=== PATIENT | female | born 1950 | race African-American/Black ===

== ENCOUNTER 2016-04-04 13:02 | Outpatient (CLI) ==
[2012-09-15 05:22] VITALS: TEMP 97.7
[2015-08-25 16:40] VITALS: BMI 38.8
[2016-04-04 14:51] LABS: ALBUMIN 3.8 g/dL (3.4-5.0); ANION GAP 18.1; BUN/CREATININE RATIO 23.52; CALCIUM 10.1 mg/dL (8.2-10.2); CREATININE 1.02 mg/dL (0.60-1.30); PHOSPHORUS 3.7 mg/dL (2.8-4.1); POTASSIUM 4.1 mmol/L (3.5-5.10)
== END 2016-04-04 13:03 | disposition home or self-care (01) ==
LOC: LAB 13:02
PROVIDERS: ATTEND General Practice
DX: I10 Essential (primary) hypertension (principal); J44.9 Chronic obstructive pulmonary disease, unspecified; I25.2 Old myocardial infarction; I50.9 Heart failure, unspecified; E11.9 Type 2 diabetes mellitus without complications; K21.9 Gastro-esophageal reflux disease without esophagitis; N28.9 Disorder of kidney and ureter, unspecified
CPT/HCPCS: 36415; 80069

== ENCOUNTER 2016-05-10 10:48 | Outpatient (CLI) ==
[2012-09-15 05:22] VITALS: TEMP 97.7
[2015-08-25 16:40] VITALS: BMI 38.8
--- NOTE | 2016-05-10 12:53 | DI ---
EXAM: CHEST FRONTAL AND LATERAL VIEWS HISTORY: Heart failure. COMPARISON: 08/28/2015 FINDINGS: Mild cardiomegaly is stable. No vascular congestion or central interstitial edema. Ther e is no consolidation or pleural fluid. IMPRESSION: Stable cardiomegaly. No current active congestive heart failure is suggested.
[2016-05-10 13:09] LABS: BASOPHILS # (AUTO) 0.1 K/uL (0-0.2); BASOPHILS % (AUTO) 0.9 % (0.0-3.0); EOSINOPHILS # (AUTO) 0.1 K/ul (0.0-0.7); EOSINOPHILS % (AUTO) 1.3 % (0.0-7.0); HEMATOCRIT 48.1 % (37.0-47.0); HEMOGLOBIN 16.2 g/dl (12.0-16.0); IMMATURE GRANULOCYTE % (AUTO) 0.6 % (0.0-5.0); MEAN CORPUSCULAR HEMOGLOBIN 29.5 pg (27.0-31.0); MEAN CORPUSCULAR HGB CONC 33.7 (31.8-35.4); MEAN CORPUSCULAR VOLUME 87.5 fl (81.0-99.0); MONOCYTES # (AUTO) 0.5 K/uL (0.4-2.0); MONOCYTES % (AUTO) 10.1 (0-10); NEUTROPHILS # (AUTO) 2.7 K/ul (2.0-6.9); NEUTROPHILS % (AUTO) 50.1; PLATELET COUNT 254 10^3/uL (140-440); WHITE BLOOD COUNT 5.35 K/ul (4.6-10.2)
[2016-05-10 13:20] LABS: ALBUMIN 3.8 g/dL (3.4-5.0); ANION GAP 15.9; BUN/CREATININE RATIO 22.22; CALCIUM 9.9 mg/dL (8.2-10.2); CREATININE 1.08 mg/dL (0.60-1.30); PHOSPHORUS 3.1 mg/dL (2.8-4.1); POTASSIUM 3.9 mmol/L (3.5-5.10)
== END 2016-05-10 10:49 | disposition home or self-care (01) ==
LOC: RAD 10:48
PROVIDERS: ATTEND General Practice
DX: I50.9 Heart failure, unspecified (principal); J44.9 Chronic obstructive pulmonary disease, unspecified; R09.89 Other specified symptoms and signs involving the circulatory and respiratory systems; I10 Essential (primary) hypertension; Z72.0 Tobacco use
CPT/HCPCS: 36415; 80069; 83880; 85025

== ENCOUNTER 2016-07-26 06:33 | Outpatient (CLI) ==
[2012-09-15 05:22] VITALS: TEMP 97.7
[2015-08-25 16:40] VITALS: BMI 38.8
--- NOTE | 2016-07-31 13:29 | ECHO2D ---
Date of Exam: 07/26/16 Ordering Physician: [facility] Reason for Echo: CHF, HTN, COPD M-Mode Normal Adult Results LV Dimensions Normal Adult Results AoV Opening excursions >1.6 >1.6 LVEDD-base- 3.5-5.8 6.4 Ao root dimensions 2.0-3.7 3.4 LVESD-base- 3.1-4.6 L. Atrium dimensions 1.9-3.8 5.5 Post. Wall thickness 0.8-1.1 1.2 IV septum (thickness) 0.7-1.2 1.2 Post. Wall excursion 0.72-1.3 0.4 Septal motion 0.2 Systolic motion R. Ventricular cavity 1.5-2.0 NORMAL LVEF 60% 20% Paradoxical septal wall motion NORMAL 2-D : ENLARGED LEFT ATRIAL AND LEFT VENTRICLE CAVITIES--GLOBAL HYPOKINESIA, VALVES--NORMAL, NO EFFUSION, NO THROMBUS M-MODE: MV: NORMAL AV: NORMAL TV: NORMAL PV: CHAMBER SIZE: ENLARGED LEFT ATRIAL AND LEFT VENTRICLE CAVITIES WALL MOTION: HYPOKINETIC LEFT VENTRICLE PERICARDIUM: NORMAL INTERPRETATION: 1. LEFT VENTRICULAR HYPERTROPHY 2. ENLARGED LEFT ATRIAL AND LEFT VENTRICLE CAVITIES 3. GLOBAL SEVERE HYPOKINESIA --EJECTION FRACTION 20% MTDD
== END 2016-07-26 06:34 | disposition home or self-care (01) ==
LOC: CAR 06:33
PROVIDERS: ATTEND General Practice
DX: I50.9 Heart failure, unspecified (principal); R63.5 Abnormal weight gain; I10 Essential (primary) hypertension; J44.9 Chronic obstructive pulmonary disease, unspecified

== ENCOUNTER 2016-08-08 11:39 | Outpatient (CLI) ==
[2012-09-15 05:22] VITALS: TEMP 97.7
[2015-08-25 16:40] VITALS: BMI 38.8
[2016-08-08 12:41] LABS: BASOPHILS # (AUTO) 0.1 K/uL (0-0.2); BASOPHILS % (AUTO) 1.4 % (0.0-3.0); EOSINOPHILS # (AUTO) 0.1 K/ul (0.0-0.7); EOSINOPHILS % (AUTO) 1.8 % (0.0-7.0); HEMATOCRIT 45.4 % (37.0-47.0); IMMATURE GRANULOCYTE % (AUTO) 0.5 % (0.0-5.0); LYMPHOCYTES # (AUTO) 1.4 K/uL (0.60-3.4); LYMPHOCYTES % (AUTO) 31.1 (10.0-50.0); MEAN CORPUSCULAR HEMOGLOBIN 29.3 pg (27.0-31.0); MEAN CORPUSCULAR VOLUME 88.7 fl (81.0-99.0); MONOCYTES # (AUTO) 0.5 K/uL (0.4-2.0); MONOCYTES % (AUTO) 10.6 (0-10); NEUTROPHILS # (AUTO) 2.4 K/ul (2.0-6.9); NEUTROPHILS % (AUTO) 54.6; PLATELET COUNT 211 10^3/uL (140-440); RED BLOOD COUNT 5.12 10^6/ul (4.20-5.40); WHITE BLOOD COUNT 4.44 K/ul (4.6-10.2)
[2016-08-08 12:44] LABS: BILIRUBIN,URINE Negative (NEGATIVE); KETONES,URINE Negative (NEGATIVE); LEUKOCYTE ESTERASE ,URINE Negative (NEGATIVE); NITRITE,URINE Negative (NEGATIVE); PROTEIN,URINE 2+ (NEGATIVE); URINE, BLOOD Negative (NEGATIVE)
[2016-08-08 12:51] LABS: ADD URINE MICROSCOPIC YES
[2016-08-08 13:14] LABS: ALBUMIN 3.5 g/dL (3.4-5.0); ALBUMIN/GLOBULIN RATIO 1.25; ANION GAP 15.7; BILIRUBIN,TOTAL 0.89 mg/dL (0.00-1.20); BUN/CREATININE RATIO 10.74; CALCIUM 9.7 mg/dL (8.2-10.2); CHOL/HDL RATIO 4.3 (4.5-5.5); CREATININE 1.21 mg/dL (0.60-1.30); POTASSIUM 3.7 mmol/L (3.5-5.10); TOTAL PROTEIN 6.3 g/dL (5.8-8.1)
--- NOTE | 2016-08-08 13:52 | DI ---
EXAM: Two views of the chest. History: Chest pain. Comparison: Chest radiograph 05/10/2016 Findings: Heart is enlarged. Interstitial edema and small right pleural effusion. No pneumothorax . No acute osseous abnormalities. Impression: Cardiomegaly with interstitial edema and small right pleural effusion.
== END 2016-08-08 11:40 | disposition home or self-care (01) ==
LOC: LAB 11:39
PROVIDERS: ATTEND General Practice
DX: R09.89 Other specified symptoms and signs involving the circulatory and respiratory systems (principal); E11.9 Type 2 diabetes mellitus without complications; I10 Essential (primary) hypertension; I25.2 Old myocardial infarction; I50.9 Heart failure, unspecified; J44.9 Chronic obstructive pulmonary disease, unspecified; K21.9 Gastro-esophageal reflux disease without esophagitis; R06.02 Shortness of breath; Z72.0 Tobacco use; Z79.899 Other long term (current) drug therapy
CPT/HCPCS: 36415; 80053; 80061; 81001; 83036; 83880; 84443; 85025

== ENCOUNTER 2016-08-17 11:26 | Inpatient (IN) ==
[2016-08-17] MEDS ORDERED: NON-FORMULARY MEDICATION (Furosemide [Furosemide] 40 MG) PO SCH (12:00)
[2016-08-17] MEDS ORDERED: NON-FORMULARY MEDICATION (Nitroglycerin [Nitrostat] 0.4 MG) SL PRN ×44 (12:00→12:56)
[2016-08-17 12:13] VITALS: BMI 42.3
[2016-08-17] MEDS ORDERED: LASIX IVP STA (12:47)
[2016-08-17] MEDS ORDERED: NITROSTAT SL PRN (13:02)
[2016-08-17 13:13] LABS: BASOPHILS % (AUTO) 0.9 % (0.0-3.0); EOSINOPHILS # (AUTO) 0.1 K/ul (0.0-0.7); EOSINOPHILS % (AUTO) 1.1 % (0.0-7.0); HEMATOCRIT 47.3 % (37.0-47.0); HEMOGLOBIN 15.7 g/dl (12.0-16.0); IMMATURE GRANULOCYTE % (AUTO) 0.5 % (0.0-5.0); LYMPHOCYTES # (AUTO) 1.4 K/uL (0.60-3.4); LYMPHOCYTES % (AUTO) 33.1 (10.0-50.0); MEAN CORPUSCULAR HEMOGLOBIN 29.1 pg (27.0-31.0); MEAN CORPUSCULAR HGB CONC 33.2 (31.8-35.4); MEAN CORPUSCULAR VOLUME 87.8 fl (81.0-99.0); MONOCYTES # (AUTO) 0.5 K/uL (0.4-2.0); MONOCYTES % (AUTO) 10.3 (0-10); NEUTROPHILS # (AUTO) 2.4 K/ul (2.0-6.9); NEUTROPHILS % (AUTO) 54.1; PLATELET COUNT 216 10^3/uL (140-440); RED BLOOD COUNT 5.39 10^6/ul (4.20-5.40); WHITE BLOOD COUNT 4.35 K/ul (4.6-10.2)
[2016-08-17 13:33] LABS: ALBUMIN 3.6 g/dL (3.4-5.0); ALBUMIN/GLOBULIN RATIO 1.2; ANION GAP 14.6; BILIRUBIN,TOTAL 1.49 mg/dL (0.00-1.20); BUN/CREATININE RATIO 9.56; CALCIUM 9.6 mg/dL (8.2-10.2); CREATININE 1.15 mg/dL (0.60-1.30); POTASSIUM 3.6 mmol/L (3.5-5.10); TOTAL PROTEIN 6.6 g/dL (5.8-8.1)
[2016-08-17] MEDS: SILVADENE CREAM TP SCH (13:45)
[2016-08-17 14:41] LABS: BILIRUBIN,URINE Negative (NEGATIVE); KETONES,URINE Negative (NEGATIVE); LEUKOCYTE ESTERASE ,URINE Trace (NEGATIVE); NITRITE,URINE Negative (NEGATIVE); PROTEIN,URINE 2+ (NEGATIVE); URINE, BLOOD Trace-intact (NEGATIVE)
[2016-08-17 14:42] LABS: ADD URINE MICROSCOPIC YES
--- NOTE | 2016-08-17 15:00 | DI ---
Exam: Chest two-view. HISTORY: Short of breath. Comparison: 08/08/2016. Findings: Two views of the chest demonstrate moderately expanded lungs without pneumothorax. The pu lmonary vasculature appears mildly congested. The cardiac silhouette is enlarged. There is blunting of the costophrenic angles. There are degenerative findings in the spine. Impressions: Cardiomegaly. Small pleural effusions. The pulmonary vasculature appears mildly congested.
[2016-08-17] MEDS ORDERED: LASIX TAB PO SCH (17:00)
[2016-08-17] MEDS: LASIX IVP SCH (20:17)
[2016-08-17] MEDS: COZAAR PO SCH (20:24)
[2016-08-17] MEDS ORDERED: CARVEDILOL 6.25 MG PO SCH (21:00)
[2016-08-17] MEDS ORDERED: LOSARTAN POTASSIUM 25 MG PO SCH (21:00)
[2016-08-17] MEDS ORDERED: COREG PO SCH (21:00)
[2016-08-18] MEDS: ZANTAC PO SCH (05:37)
[2016-08-18 05:51] LABS: BASOPHILS # (AUTO) 0.1 K/uL (0-0.2); BASOPHILS % (AUTO) 1.3 % (0.0-3.0); EOSINOPHILS # (AUTO) 0.1 K/ul (0.0-0.7); EOSINOPHILS % (AUTO) 1.8 % (0.0-7.0); HEMATOCRIT 48.7 % (37.0-47.0); HEMOGLOBIN 15.7 g/dl (12.0-16.0); IMMATURE GRANULOCYTE % (AUTO) 0.4 % (0.0-5.0); LYMPHOCYTES # (AUTO) 1.9 K/uL (0.60-3.4); LYMPHOCYTES % (AUTO) 41.3 (10.0-50.0); MEAN CORPUSCULAR HEMOGLOBIN 28.2 pg (27.0-31.0); MEAN CORPUSCULAR HGB CONC 32.2 (31.8-35.4); MEAN CORPUSCULAR VOLUME 87.6 fl (81.0-99.0); MONOCYTES # (AUTO) 0.5 K/uL (0.4-2.0); MONOCYTES % (AUTO) 10.8 (0-10); NEUTROPHILS % (AUTO) 44.4; PLATELET COUNT 229 10^3/uL (140-440); RED BLOOD COUNT 5.56 10^6/ul (4.20-5.40); WHITE BLOOD COUNT 4.53 K/ul (4.6-10.2)
[2016-08-18 06:13] LABS: ALBUMIN 3.6 g/dL (3.4-5.0); ALBUMIN/GLOBULIN RATIO 1.2; ANION GAP 15.7; BILIRUBIN,TOTAL 1.18 mg/dL (0.00-1.20); BUN/CREATININE RATIO 11.11; CALCIUM 9.7 mg/dL (8.2-10.2); CREATININE 1.17 mg/dL (0.60-1.30); POTASSIUM 3.7 mmol/L (3.5-5.10); TOTAL PROTEIN 6.6 g/dL (5.8-8.1)
[2016-08-18] MEDS ORDERED: NON-FORMULARY MEDICATION (Metformin Hcl [Glucophage] 1,000 MG) PO SCH ×22 (09:00)
[2016-08-18] MEDS ORDERED: SPIRONOLACTONE 25 MG PO SCH ×21 (09:00)
[2016-08-18] MEDS ORDERED: DOCUSATE SODIUM 100 MG PO SCH ×22 (09:00)
[2016-08-18] MEDS ORDERED: ASPIRIN 81 MG PO SCH (09:00)
[2016-08-18] MEDS ORDERED: ZANTAC PO SCH (09:00)
[2016-08-18] MEDS ORDERED: DOCUSATE SODIUM 200 MG PO SCH (09:00)
[2016-08-18] MEDS ORDERED: ALDACTONE PO SCH (09:00)
[2016-08-18] MEDS ORDERED: COLACE PO SCH (09:00)
[2016-08-18] MEDS: SILVADENE CREAM TP SCH (09:07)
[2016-08-18] MEDS: COREG PO SCH ×2 (09:09→17:27)
[2016-08-18] MEDS: COZAAR PO SCH ×2 (09:11→20:23)
[2016-08-18] MEDS: LASIX IVP SCH (09:12)
--- NOTE | 2016-08-18 13:36 | DI ---
EXAM: Chest two views HISTORY: Congestion COMPARISON: 08/17/2016 TECHNIQUE: Two views of the chest were performed FINDINGS: Heart is enlarged, unchanged. Mild pulmonary vascular congestion. No definite airspace consolidation. Probable small right pleural effusion. No visible pneumothorax. IMPRESSION: Cardiomegaly with mild pulmonary vascular congestion. Probable small right pleural effu femi.
[2016-08-18] MEDS ORDERED: LASIX IVP STA (18:49)
[2016-08-18] MEDS ORDERED: ZYVOX 600 MG/300 ML BAG IV ONE (19:40)
[2016-08-18] MEDS: LOVENOX SUBCUT SCH (19:48)
[2016-08-18] MEDS: ZYVOX 600 MG in PREMIX 300 ML WATER 1 BAG IV SCH ×2 (19:49→20:24)
[2016-08-19] MEDS: ZANTAC PO SCH (05:46)
[2016-08-19 06:08] LABS: BASOPHILS % (AUTO) 0.9 % (0.0-3.0); EOSINOPHILS # (AUTO) 0.1 K/ul (0.0-0.7); EOSINOPHILS % (AUTO) 1.4 % (0.0-7.0); HEMATOCRIT 49.3 % (37.0-47.0); HEMOGLOBIN 16.3 g/dl (12.0-16.0); IMMATURE GRANULOCYTE % (AUTO) 0.5 % (0.0-5.0); LYMPHOCYTES # (AUTO) 1.6 K/uL (0.60-3.4); LYMPHOCYTES % (AUTO) 37.4 (10.0-50.0); MEAN CORPUSCULAR HEMOGLOBIN 28.7 pg (27.0-31.0); MEAN CORPUSCULAR HGB CONC 33.1 (31.8-35.4); MEAN CORPUSCULAR VOLUME 86.9 fl (81.0-99.0); MONOCYTES # (AUTO) 0.5 K/uL (0.4-2.0); MONOCYTES % (AUTO) 10.9 (0-10); NEUTROPHILS # (AUTO) 2.1 K/ul (2.0-6.9); NEUTROPHILS % (AUTO) 48.9; PLATELET COUNT 212 10^3/uL (140-440); RED BLOOD COUNT 5.67 10^6/ul (4.20-5.40); WHITE BLOOD COUNT 4.33 K/ul (4.6-10.2)
[2016-08-19 06:31] LABS: ALBUMIN 3.5 g/dL (3.4-5.0); ALBUMIN/GLOBULIN RATIO 1.25; ANION GAP 18.6; BILIRUBIN,TOTAL 1.54 mg/dL (0.00-1.20); BUN/CREATININE RATIO 13.55; CALCIUM 9.7 mg/dL (8.2-10.2); CREATININE 1.18 mg/dL (0.60-1.30); POTASSIUM 3.6 mmol/L (3.5-5.10); TOTAL PROTEIN 6.3 g/dL (5.8-8.1)
[2016-08-19] MEDS ORDERED: NITROSTAT SL PRN (07:54)
[2016-08-19] MEDS ORDERED: ASPIRIN CHEWABLE PO SCH (08:00)
[2016-08-19] MEDS: ZYVOX 600 MG in PREMIX 300 ML WATER 1 BAG IV SCH ×2 (08:23→20:03)
[2016-08-19] MEDS: SILVADENE CREAM TP SCH (08:27)
[2016-08-19] MEDS: ALDACTONE PO SCH (08:27)
[2016-08-19] MEDS: COLACE PO SCH (08:27)
[2016-08-19] MEDS: GLUCOPHAGE PO SCH (08:28)
[2016-08-19] MEDS: COREG PO SCH ×2 (08:28→17:03)
[2016-08-19] MEDS: COZAAR PO SCH ×2 (08:28→20:03)
[2016-08-19] MEDS: LOVENOX SUBCUT SCH (08:29)
[2016-08-19] MEDS: ASPIRIN EC PO SCH (08:48)
[2016-08-19] MEDS: LASIX TAB PO SCH (17:03)
[2016-08-20] MEDS: LASIX TAB PO SCH ×4 (06:00→16:53)
[2016-08-20] MEDS: ZANTAC PO SCH (06:16)
[2016-08-20] MEDS: COREG PO SCH ×2 (08:10→16:53)
[2016-08-20] MEDS: GLUCOPHAGE PO SCH (08:10)
[2016-08-20] MEDS: ZYVOX 600 MG in PREMIX 300 ML WATER 1 BAG IV SCH ×2 (08:10→20:09)
[2016-08-20] MEDS: ASPIRIN EC PO SCH (08:10)
[2016-08-20] MEDS: ALDACTONE PO SCH (08:11)
[2016-08-20] MEDS: COZAAR PO SCH ×2 (08:11→20:09)
[2016-08-20] MEDS: COLACE PO SCH (08:11)
[2016-08-20] MEDS: LOVENOX SUBCUT SCH (08:11)
[2016-08-20] MEDS: SILVADENE CREAM TP SCH (08:27)
[2016-08-21] MEDS: ZANTAC PO SCH (05:45)
[2016-08-21] MEDS: LASIX TAB PO SCH ×2 (05:46→17:26)
[2016-08-21] MEDS ORDERED: BUMEX IVP STA (08:01)
[2016-08-21] MEDS: ASPIRIN EC PO SCH (08:34)
[2016-08-21] MEDS: COREG PO SCH ×2 (08:34→17:27)
[2016-08-21] MEDS: GLUCOPHAGE PO SCH (08:35)
[2016-08-21] MEDS: COLACE PO SCH (08:37)
[2016-08-21] MEDS: ALDACTONE PO SCH (08:37)
[2016-08-21] MEDS: COZAAR PO SCH ×2 (08:37→20:10)
[2016-08-21] MEDS: LOVENOX SUBCUT SCH (08:37)
[2016-08-21] MEDS: ZYVOX 600 MG in PREMIX 300 ML WATER 1 BAG IV SCH ×2 (08:38→20:09)
[2016-08-21] MEDS: SILVADENE CREAM TP SCH (08:40)
[2016-08-21] MEDS ORDERED: NICODERM 14 MG TD SCH (21:00)
[2016-08-22] MEDS: LASIX TAB PO SCH (05:48)
[2016-08-22] MEDS: ZANTAC PO SCH (05:48)
[2016-08-22 08:57] LABS: BASOPHILS % (AUTO) 0.6 % (0.0-3.0); EOSINOPHILS # (AUTO) 0.1 K/ul (0.0-0.7); HEMATOCRIT 46.1 % (37.0-47.0); IMMATURE GRANULOCYTE % (AUTO) 0.3 % (0.0-5.0); LYMPHOCYTES # (AUTO) 0.9 K/uL (0.60-3.4); LYMPHOCYTES % (AUTO) 25.8 (10.0-50.0); MEAN CORPUSCULAR HEMOGLOBIN 28.4 pg (27.0-31.0); MEAN CORPUSCULAR HGB CONC 32.5 (31.8-35.4); MEAN CORPUSCULAR VOLUME 87.1 fl (81.0-99.0); MONOCYTES # (AUTO) 0.5 K/uL (0.4-2.0); MONOCYTES % (AUTO) 15.1 (0-10); NEUTROPHILS # (AUTO) 1.9 K/ul (2.0-6.9); NEUTROPHILS % (AUTO) 56.2; PLATELET COUNT 219 10^3/uL (140-440); RED BLOOD COUNT 5.29 10^6/ul (4.20-5.40); WHITE BLOOD COUNT 3.45 K/ul (4.6-10.2)
[2016-08-22 09:14] LABS: ALBUMIN 3.6 g/dL (3.4-5.0); ALBUMIN/GLOBULIN RATIO 1.16; ANION GAP 15.6; BILIRUBIN,TOTAL 1.37 mg/dL (0.00-1.20); BUN/CREATININE RATIO 10.65; CALCIUM 9.8 mg/dL (8.2-10.2); CREATININE 1.22 mg/dL (0.60-1.30); POTASSIUM 3.6 mmol/L (3.5-5.10); TOTAL PROTEIN 6.7 g/dL (5.8-8.1)
[2016-08-22] MEDS: COREG PO SCH (09:56)
[2016-08-22] MEDS: COLACE PO SCH (09:59)
[2016-08-22] MEDS: ASPIRIN EC PO SCH (10:00)
[2016-08-22] MEDS: ALDACTONE PO SCH (10:00)
[2016-08-22] MEDS: LOVENOX SUBCUT SCH (10:00)
[2016-08-22] MEDS: COZAAR PO SCH (10:00)
[2016-08-22] MEDS: SILVADENE CREAM TP SCH (10:01)
[2016-08-22] MEDS: GLUCOPHAGE PO SCH (10:02)
[2016-08-22] MEDS: ZYVOX 600 MG in PREMIX 300 ML WATER 1 BAG IV SCH (10:02)
[2016-08-22 10:19] VITALS: BP 98/66; TEMP 96.9
--- NOTE | 2016-08-22 11:55 | HP ---
CHIEF COMPLAINT: Bilateral leg edema and vesicle blister of left lower anterior leg. SOURCE OF HISTORY: Patient. HISTORY OF PRESENT ILLNESS: The patient had a vesicle blister on the left anterior leg and ruptured two days ago. The patient has some burning sensation and with some drainage. The area was cleaned with hydrogen peroxide and Neosporin ointment. The patient was seen at the office 08/11/2016. The patient had bilateral leg edema, but no vesicles at that time or vesicular eruptions. The patient does also complain of being lightheaded and dizzy and not feeling well. The patient is then admitted to the hospital for further observation and treatment. This patient had diabetes mellitus. PAST PERSONAL HISTORY: The patient had history of congestive heart failure and was admitted 07/28/2015, as well as 08/25/2015. The patient is known to be hypertensive with diabetes mellitus type II, elevated BMI, COPD and degenerative arthritis. This patient had a previous hysterectomy and hemorrhoidectomy. The patient on 08/28/2015 admission had a BNP of 3,175. This went down to 2,208 on 09/11/2015, four days after admission. The patient was discharged on 09/01/2015. The patient was seen by Dr. Mayes, Corporate Ethics Officer, during that admission. The patient on 07/29/2015 admission had a BNP of 4,142. She also was admitted 03/13/2015 with diagnosis of congestive heart failure. BNP was 2,230 and the GFR was 77 and 66. The patient had an echocardiogram on 03/16/15 and the ejection fraction ranged from 25 to 30. She also had a previous diagnosis of pancreatitis. She was seen by Dr. Iasiah Medrano on 09/13 and her BNP then was 1,139. Final diagnosis on admission of 09/13/2012 was pneumonia, congestive heart failure, coronary artery disease. She had a previous myocardial infarction, as well as gastroesophageal reflux disease and chronic tobacco use and abuse. FAMILY HISTORY: Brother is diabetic with kidney disease, sister is hypertensive with diabetes mellitus and from the complications of the disease. Father was diabetic and mother had congestive heart failure. Mother also was diabetic. SOCIAL HISTORY: The patient is single and resides with her daughter. She denies any use of tobacco or tobacco products or alcohol or any use of drugs other than prescribed. MEDICATIONS: Prior to this admission. Aldactone 25 mg daily Aspirin 81 mg daily Ranitidine 150 mg daily Metformin 1000 mg daily Carvedilol 6.2 mg twice a day Nitroglycerin 0.4 mg prn Losartan 25 mg twice a day Lasix 40 mg tablet twice a day Colace 100 mg capsule two capsules daily ALLERGIES: Penicillin. REVIEW OF SYSTEMS: CONSTITUTIONAL: The patient had no fever or chills, but has fatigue. LOGISTICS LEAD: Denies any headaches or ataxia or syncopal episode or seizure problems. VISUAL: The patient denies any double vision, blurred vision and or transient loss of vision. AUDITORY: Hearing is decreased, but denies any tinnitus, pain or drainage. RESPIRATORY: The patient has some cough with some shortness of breath or exertion. CARDIOVASCULAR: Denies any chest tightness or chest pain. The patient had previous history of VT. GASTROINTESTINAL: The patient denies any nausea or anorexia or dysphagia. She denies any abdominal pain or diarrhea. GENITOURINARY: The patient denies any dysuria. MUSCULOSKELETAL: Denies any significant pain or swelling on the joints of stiffness. She does have edema on both legs. INTEGUMENT: Denies any rash or pruritus. ENDOCRINE: Denies any polyuria or polydipsia, although the patient has diabetes mellitus type II. HEMATOLOGIC: Denies any history of prolonged bleeding or easy bruising. PSYCHIATRIC: The patient is amiable, cooperative. Affect is normal. PHYSICAL EXAMINATION: GENERAL: We have a 66 year old black female admitted to the hospital because of a ruptured vesicle on the left anterior leg with a few other small eruptions or vesicles. Both legs are markedly edematous. The daughter claimed that she had some vesicles that had ruptured in the past. The patient also had shortness of breath and so this patient was advised admission to take care of the wound, as well as further treatment of the exertional dyspnea/congestive heart failure maybe with exacerbation. The patient did agree. VITAL SIGNS: Temperature 97.3, pulse 92, blood pressure 110/60, respiratory rate 20, oxygen saturation 92 at room. The patient weighs 268 pounds and 11.2 ounces at 5'7". HEAD: Unremarkable. FACE: Symmetrical and equal with no facial weakness. The patient denies any tenderness in the frontal or maxillary sinus areas to palpation under pressure. EYES: Pupils equal/reactive to light. Conjunctivae not pale. Sclerae not icteric. MOUTH: Unremarkable. THROAT: No inflammation, tumors or exudate. NECK: No masses. No bruit. No tenderness. No rigidity. CHEST: Essentially symmetrical and equal with acceptable expansion. LUNGS: Breath sounds are diminished in both sides. Rales at both bases, slightly more on the right and no wheezing. HEART: Audible and regular with good tones. No murmurs. ABDOMEN: Protuberant, soft with no remarkable tenderness. No guarding. Bowel sounds are active. No masses palpable. EXTERNAL GENITALIA: Not examined. RECTAL: Not performed. LOWER EXTREMITIES: Essentially symmetrical and equal and edematous with a raw surface in the left anterior leg, mid portion. There is no remarkable surrounding redness. There is some drainage. The patient is advised admission for further care of the open wound, as well as the congestive heart failure which is a chronic problem. The patient is agreeable and the daughter did bring her to the hospital for the admission. ASSESSMENT: 1. MULTIPLE SMALL VESICLES, LEFT LEG 2. BILATERAL LEG EDEMA, MODERATELY SEVERE 3. PERIPHERAL ARTERIAL DISEASE, ABSENT TIBIAL PULSES 4. CONGESTIVE HEART FAILURE, PROBABLE 5. MARKEDLY ELEVATED BMI 6. CORONARY ARTERY DISEASE, STATUS POST VT 7. HYPERTENSION, CONTROLLED. TREATED. 8. DIABETES MELLITUS TYPE II 9. CHRONIC TOBACCO USE AND ABUSE, PERSISTENT PLAN: 1. Admit. PROGNOSIS: Poor. MTDD
--- NOTE | 2016-08-22 13:20 | PN ---
DATE OF VISIT: 08/18/16 The patient, today, is alert and not dyspneic, nor tachypneic at rest. She was lying in bed and I advised her to elevate her legs in order to reduce the swelling. She did have a vesicular eruption, which is on the medial side of the left leg. There is no surrounding induration or redness and no thickening. The patient has edema on both legs, as well as the ankles and feet. The dressing was removed and the wound was inspected. The area is about the same as yesterday. There are no other blisters or vesicles now. The swelling may have slightly decreased. I emphasized to the patient that the swelling has to come down so it would allow healing. I am afraid that the problem may become more worse since she is diabetic. VITAL SIGNS: At 5:55 p.m. shows a temperature of 97.2, pulse 92, blood pressure 123/83, respirations 16, oxygen saturation 95 at room air. LUNGS: The lungs have a few rales at the bases. No more than yesterday. HEART: Audible and regular, but somewhat distant. ABDOMEN: Protuberant with no remarkable tenderness. The bowel sounds are active. I had talked to the patient earlier in the day that possibly she could stay in the halfway for continued care of the ulceration or vesicular eruption. The patient did not tell me yes or no. I did talk to the daughter, Raquel, who brings her to the office. She does reside with her mother. She told me that she doesn't want her mother to go to the halfway. After she is discharged from the hospital if the problem stabilizes that a Home Health nurse will be requested for services for change of dressing and follow up. I had advised the patient in the presence of NELLI Davis that I am going out of town early in the morning and that I would leave her care to Dr. Reed. I told her that Dr. Mayes is not in town. Dr. Reed is the doctor that would be admitted my patients and also will follow my patients while I am gone for the next few days. The patient was agreeable. I called Raquel Nettles, phone number at 6:59 p.m. I did advise her that I am going out of town early in the morning and that Dr. Reed will be following her in my absence. I also told her that I had advised her mother about this coverage. I told Raquel that I would not be back until late Sunday or early of next week. I told her that if and when things get better that she goes home that Home Health would be requested to come and see her and possibly change the dressing and follow the medications. I had talked to Dr. Reed already with the transfer. He had accepted the care of this patient in my absence. This patient has chronic kidney disease stage III and so the Zyvox was elected for the antibiotic. She is given Zyvox 600 mg IV every 12 hours. This will be changed depending upon the results of the wound culture. LALITO
--- NOTE | 2016-08-31 11:40 | PN ---
DATE OF SERVICE: 08/19/16 I am seeing the patient for Dr. Leon. SUBJECTIVE: The patient was admitted with left leg blistery areas and vesicles with infection, bilateral leg edema and acute on chronic heart failure. The patient has been on the Zyvox. The pain in the left leg is better, but still has shortness of breath with minimal exertion. REVIEW OF SYSTEMS: CONSTITUTIONAL: No fever, no chills. HEENT: Normal. ENDOCRINE: No weight gain, no weight loss. CVS: No angina symptoms. No CHF symptoms. No palpitations. No atypical chest pain for CAD. Shortness of breath. No PND, no orthopnea. RESPIRATORY: No cough, no hemoptysis. GI: No nausea, no vomiting. No abdominal pain. : No hematuria. No polyuria. MUSCULOSKELETAL:. Bilateral leg edema. PSYCHIATRIC: Not anxious. No depression. No suicidal thoughts. No homicidal thoughts. SKIN: Vesicles left leg. PHYSICAL EXAMINATION: V/S: Blood pressure 108/76, respiratory rate is 18, heart rate 83, temperature 95.6. GENERAL: HEENT: Normocephalic, atraumatic. Mucosa dry. No pallor or icterus. NECK: Supple. No JVD, no carotid bruit. No lymphadenopathy. LUNGS: Decreased with some basilar crackles. No rales or rhonchi. HEART: S1, S2 normal. No S3. No murmur, gallop or regurgitation. ABDOMEN: Soft, nontender. Bowel sounds active. No rigidity. No rebound or guarding. No CVA tenderness. EXTREMITIES: Left leg vesicles are ruptured 2 X 3 cm, tender. 2+ dependent edema. MUSCULOSKELETAL: No joint swelling. NEUROLOGIC: Awake, alert, oriented times three. No focal deficit. LYMPHATIC: No lymph nodes palpable. SKIN: Left leg vesicles are ruptured 2 X 3 cm, tender. 2+ pitting edema. LABS: White count 4.33, hemoglobin 16.3, hematocrit 49.3, platelet count 212, sodium 142, potassium 3.6, chloride 100, bicarb 27, BUN 16, creatinine 1.18, A1C 7.1. Her BNP is 2854. ASSESSMENT: 1. LEFT LEG BLISTERS WITH CELLULITIS 2. ACUTE ON CHRONIC HEART FAILURE 3. HYPERTENSION 4. DYSLIPIDEMIA 5. MARKEDLY ELEVATED BMI 6. CORONARY ARTERY DISEASE, STATUS POST ND 7. DIABETES 8. CHRONIC KIDNEY DISEASE STAGE III PLAN: 1. Continue the Zyvox. 2. Daily I & O's. 3. Continue the Lasix. 4. No salt diet. 5. Keep the legs elevated when resting. TIME SPENT: More than 30 minutes MTDD
--- NOTE | 2016-08-31 11:52 | PN ---
DATE OF SERVICE: 08/20/16 I am seeing the patient for Dr. Leon. SUBJECTIVE: The patient was admitted with acute on chronic heart failure and left leg cellulitis with multiple blisters. The patient is still getting the shortness of breath with minimal exertion. The patient is kind of upset because Dr. Leon is out of town and I am taking care of her. She said that she doesn't have anything personal against me, but she is Dr. Leon's patient. REVIEW OF SYSTEMS: CONSTITUTIONAL: No fever, no chills. HEENT: Normal. ENDOCRINE: No weight gain, no weight loss. CVS: No angina symptoms. No CHF symptoms. No palpitations. No atypical chest pain for CAD. Shortness of breath. No PND, no orthopnea. RESPIRATORY: No cough, no hemoptysis. GI: No nausea, no vomiting. No abdominal pain. : No hematuria. No polyuria. MUSCULOSKELETAL:. No joint swelling. PSYCHIATRIC: Not anxious. No depression. No suicidal thoughts. No homicidal thoughts. SKIN: Left leg blisters. PHYSICAL EXAMINATION: V/S: Blood pressure 124/62, respiratory rate 20, heart rate 79, temperature 95.7. HEENT: Normocephalic, atraumatic. Mucosa dry. NECK: Supple. No JVD, no carotid bruit. No lymphadenopathy. LUNGS: Decreased and basilar crackles. No rales or rhonchi. HEART: S1, S2 normal. No S3. No murmur, gallop or regurgitation. ABDOMEN: Soft, nontender. Bowel sounds active. No rigidity. No rebound or guarding. No CVA tenderness. EXTREMITIES: Left leg blister is ruptured and draining a clear to yellow discharge. Tender to touch. 2+ leg edema. MUSCULOSKELETAL: No joint swelling. NEUROLOGIC: Awake, alert, oriented times three. No focal deficit. LYMPHATIC: No lymph nodes palpable. SKIN: Left leg blisters. LABS: White count is 4.33, hemoglobin 16.3, hematocrit 49.3, platelet count 212 , sodium 142, potassium 3.6, chloride 100, bicarb 27, BUN 16, creatinine 1.19. ASSESSMENT: 1. LEFT LEG CELLULITIS WITH BLISTERS 2. ACUTE ON CHRONIC HEART FAILURE 3. HYPERTENSION 4. DYSLIPIDEMIA 5. DIABETES WITH A1C OF 7.1 6. CONGESTIVE HEART FAILURE 7. DILATED CARDIOMYOPATHY PLAN: 1. Keep the legs elevated. 2. No salt diet. 3. Continue the Zyvox, Lasix. 4. Daily I and O's. 5. Spironolactone. 6. Will follow the patient in daily rounds. TIME SPENT: More than 30 minutes MTDD
--- NOTE | 2016-08-31 12:50 | PN ---
DATE OF SERVICE: 08/21/16 I am seeing the patient for Dr. Leon. SUBJECTIVE: The patient was admitted with acute on chronic heart failure and the left leg blisters, which were opened up and still draining some clear to yellow stuff. Nontender. The patient's leg edema is somewhat worse today. REVIEW OF SYSTEMS: CONSTITUTIONAL: No fever, no chills. HEENT: Normal. ENDOCRINE: No weight gain, no weight loss. CVS: No angina symptoms. No palpitations. No atypical chest pain for CAD. Shortness of breath. No PND, no orthopnea. RESPIRATORY: No cough, no hemoptysis. GI: No nausea, no vomiting. No abdominal pain. : No hematuria. No polyuria. MUSCULOSKELETAL:. No joint swelling. PSYCHIATRIC: Not anxious. No depression. No suicidal thoughts. No homicidal thoughts. SKIN: Left leg blisters. PHYSICAL EXAMINATION: V/S: Blood pressure 134/80, respiratory rate 16, heart rate 88, temperature 95.1. HEENT: Normocephalic, atraumatic. Mucosa . NECK: Supple. No JVD, no carotid bruit. No lymphadenopathy. LUNGS: Decreased and crackles. No rales or rhonchi. HEART: S1, S2 normal. No S3. No murmur, gallop or regurgitation. ABDOMEN: Soft, nontender. Bowel sounds active. No rigidity. No rebound or guarding. No CVA tenderness. EXTREMITIES: Left leg ulcer, slightly tender around and warm to touch. It is open and it is with some yellow exudates. 2+ leg edema. MUSCULOSKELETAL: No joint swelling. NEUROLOGIC: Awake, alert, oriented times three. No focal deficit. LYMPHATIC: No lymph nodes palpable. SKIN: Blisters left leg. LABS: From 08/19/16, white count is 4.33, hemoglobin 16.3, hematocrit 49.3, platelet count is 212, sodium 142, potassium 3.6, chloride 100, bicarb 27, BUN 16, creatinine 1.18. ASSESSMENT: 1. ACUTE ON CHRONIC HEART FAILURE 2. LEFT LEG CELLULITIS WITH BLISTERS 3. CHRONIC DEPENDENT LEG EDEMA 4. DIABETES 5. CHRONIC KIDNEY DISEASE 6. CARDIOMYOPATHY PLAN: 1. Will give Bumex 1 mg IV push today. 2. Continue Lasix and Spironolactone. 3. I and O's. 4. Will follow up with the patient in daily rounds. 5. Lovenox is being given for the DVT prophylaxis. TIME SPENT: More than 35 minutes today. VIANNEYD
--- NOTE | 2016-10-17 09:08 | DS ---
PATIENT IDENTIFICATION: 66 year old black female was admitted to the hospital because of bilateral leg edema with large vesicles that had ruptured with continuous serous drainage. She was seen a week ago at the office with leg swelling and was advised to elevate the legs as much as possible above her heart level. This patient had previous history of congestive heart failure and the patient was admitted with consideration of heart failure aggravating the positional edema. This patient is now on Aldactone 25 mg daily with Carvedilol 6.25 mg twice a day, Losartan 25 mg twice a day, Lasix 40 mg daily. She is also on Metformin, as well as Nitroglycerin prn and Aspirin. HOSPITAL COURSE: The patient is alert and responsive and cheerful. LUNGS: Diminished breath sounds with rales on both sides, slightly more on the right with no wheezing. HEART: Audible and regular with good tones. ABDOMEN: Soft and markedly protuberant. Bowel sounds are active. LOWER EXTREMITIES: Essentially symmetrical in size with pitting edema and a large raw surface from the vesicular eruption left anterior leg. Significant redness. The patient's work-up consisted of serial CBC's showing very mild leukopenia. Normal hemoglobin and hematocrit. Normal platelet count. Blood sugar 128. GFR 57. BNP 3,053. Urinalysis 2+ protein, 5-10 rebekah casts, RBC 0-2, WBC 0-2 , no bacteria. Chest x-ray revealed cardiomegaly with small pleural effusion, pulmonary vascular appears mildly congested. The patient on admission was given Lasix 40 mg IV. The Lasix at home was continued, however this Lasix was to be given on an empty stomach way before breakfast and also before supper. The patient had been taking the medication with food at home. The legs also were elevated. Subsequent BNP on the following day was higher than admission and now 3,802. Chest x-ray is essentially unchanged. It is still showing mild pulmonary vascular congestion. The patient weighed 270 on admission and went down to 268, but then came back to 270 and as high as 271. The patient's weight did go back to 268.4 at the time of discharge. This patient was continued on all of her medications. The patient, as well as the daughter, was advised that the patient needs to pay attention to her diet. She had been gaining weight. She would also have to eat less amount of salt and less amount of calories. She should eat more vegetables. She already has chronic disease stage III and I did advise them that sometimes the progression of this problem maybe faster with somebody who is hypertensive with diabetes. I emphasized and reemphasized to the patient, as well as the daughter, that she needs to elevate her legs above her heart, although that is a little bit difficult, but it needs to be done. The third BNP now is much lower at 2,854. This patient never had a normal BNP anymore. The GFR had stayed between 54 and 57. The patient was afebrile throughout her hospital stay and her blood pressure was more or less 120/76 for the next four days and on 08/21/2016 the blood pressure did go down to 100 and even slightly lower. Her oxygen saturation at room air is 95%. The patient at discharge was alert and ambulatory. Not dyspneic, nor tachypneic. LUNGS: She has rales on both lower lung moseley. No wheezing. Breath sounds are diminished. HEART: Audible and regular with good tones. ABDOMEN: Protuberant. I did advise the patient that she needed to lose weight because of her diabetes and also because of her congestive heart failure. She needed to eat less amount of salt or no salt added to the usual cooking. She should elevate her legs all of the time possible. FINAL DIAGNOSES: 1. CONGESTIVE HEART FAILURE, IMPROVED 2. BILATERAL LEG EDEMA, IMPROVED 3. VESICULAR ERUPTIONS SECONDARY TO SEVERE EDEMA OF LEFT LOWER EXTREMITY 4. DIABETES MELLITUS TYPE II 5. HYPERTENSION 6. CORONARY ARTERY DISEASE, STATUS POST IA 7. MARKEDLY ELEVATED BMI 8. CHRONIC TOBACCO USE AND ABUSE, PERSISTENT 9. PERIPHERAL ARTERIAL DISEASE, ABSENT TIBIAL PULSES PROGNOSIS: Poor. MTDD
== END 2016-08-22 12:30 | disposition home or self-care (01) | DRG 292 ==
LOC: MEDSURG B 11:26 → OBSVTOIN 08-18 13:40
PROVIDERS: ADMIT General Practice; ATTEND General Practice
DX: I50.9 Heart failure, unspecified (principal); L03.116 Cellulitis of left lower limb; J90 Pleural effusion, not elsewhere classified; R60.0 Localized edema; R23.8 Other skin changes; R06.02 Shortness of breath; I73.9 Peripheral vascular disease, unspecified; I42.0 Dilated cardiomyopathy; E11.22 Type 2 diabetes mellitus with diabetic chronic kidney disease; N18.3 Chronic kidney disease, stage 3 (moderate); I10 Essential (primary) hypertension; J44.9 Chronic obstructive pulmonary disease, unspecified; D72.819 Decreased white blood cell count, unspecified; R63.8 Other symptoms and signs concerning food and fluid intake; I25.2 Old myocardial infarction; F17.200 Nicotine dependence, unspecified, uncomplicated; Z79.84 Long term (current) use of oral hypoglycemic drugs; Z79.899 Other long term (current) drug therapy
CPT/HCPCS: 36415; 80053; 81001; 82962; 83036; 83735; 83880; 84145; 85025; 87040; 87070; 93005; 93010; 99223; 99233; 99239

== ENCOUNTER 2016-09-13 10:39 | Outpatient (CLI) ==
[2012-09-15 05:22] VITALS: TEMP 97.7
== END 2016-09-13 10:40 | disposition home or self-care (01) ==
LOC: WOUND 10:39
PROVIDERS: ATTEND Nurse Practitioner Family
DX: I87.332 Chronic venous hypertension (idiopathic) with ulcer and inflammation of left lower extremity (principal); L97.822 Non-pressure chronic ulcer of other part of left lower leg with fat layer exposed; I10 Essential (primary) hypertension; J44.9 Chronic obstructive pulmonary disease, unspecified; I50.9 Heart failure, unspecified; E11.9 Type 2 diabetes mellitus without complications

== ENCOUNTER 2016-09-20 10:44 | Outpatient (CLI) ==
[2012-09-15 05:22] VITALS: TEMP 97.7
== END 2016-09-20 10:45 | disposition home or self-care (01) ==
LOC: WOUND 10:44
PROVIDERS: ATTEND Nurse Practitioner Family
DX: I87.332 Chronic venous hypertension (idiopathic) with ulcer and inflammation of left lower extremity (principal); L97.822 Non-pressure chronic ulcer of other part of left lower leg with fat layer exposed; I10 Essential (primary) hypertension; J44.9 Chronic obstructive pulmonary disease, unspecified; I50.9 Heart failure, unspecified; E11.9 Type 2 diabetes mellitus without complications
CPT/HCPCS: 11042; 99213

== ENCOUNTER 2016-10-04 10:17 | Outpatient (CLI) ==
[2012-09-15 05:22] VITALS: TEMP 97.7
[2016-10-04 15:12] VITALS: BMI 43.7
== END 2016-10-04 10:18 | disposition home or self-care (01) ==
LOC: AMBL 10:17
PROVIDERS: ATTEND Emergency Medicine
DX: R06.02 Shortness of breath (principal); E11.9 Type 2 diabetes mellitus without complications

== ENCOUNTER 2016-10-04 10:30 | Inpatient (IN) ==
--- NOTE | 2016-10-04 10:43 | ED.PDOC ---
General ED Provider: Dr. 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 [place] more short of air and wanted to go to ER - had daughter call EMS) Timing: Constant (For past month or so; more swelling in legs and feet. Has wanted to go to hospital a week or so.) Initial Severity: Moderate (But concerned today worse) Current Severity: Moderate Character: Reports: Dyspnea at rest, Dyspnea on exertion. Denies: Orthopnea Aggravating: Reports: None Alleviating: Reports: None (Rest) Associated Signs and Symptoms: Denies: Cough, Wheezing, Chest pain with cough Related History: Reports: Similar episode History of Healthcare-Acquired Pneumonia: No (Was in [facility] recently with CHF, SOA SX) Pulmonary Embolism Risk Factors: Reports: None Cardiac Risk Factors: Reports: CHF Pseudomonas Risk Factors: Reports: None Home Oxygen Use: No Recent Stress Test: No Recent Echo/LV Function: No Respiratory Distress: None Stridor Present: No Tracheal Deviation: No Subcutaneous Emphysema: No Accessory Muscle Use: No Retractions: Not Present Diminished Breath Sounds: No Prolonged Expiratory Phase: No Unable to Speak Full Sentences: No Fatigue: Yes Leg Swelling: Yes Review of Systems - Review Of Systems Constitutional: Reports: Malaise Eyes: Reports: No symptoms Ears, Nose, Mouth, Throat: Reports: No symptoms Respiratory: Reports: Short of air Cardiac: Reports: No symptoms, Edema (bilat LEs) GI: Reports: No symptoms Skin: Reports: Lesions (chronic LEs, feet) Neurological: Reports: No symptoms Endocrine: Reports: No symptoms All Other Systems: Reviewed and Negative Past Medical History - Past Medical History Previously Healthy: No Endocrine: Reports: None Cardiovascular: Reports: Hypertension, CHF Respiratory: Reports: None Hematological: Reports: None Gastrointestinal: Reports: None Genitourinary: Reports: None Neuro/Psych: Reports: None Musculoskeletal: Reports: None Cancer: Reports: None - Surgical History General Surgical History: Reports: None - Family History Family History: Reports: None - Social History Smoking Status: Current every day smoker Hx Substance Use: Yes (1995) Alcohol Screening: None Physical Exam - Physical Exam Appearance: Ill-appearing Ill-appearing: Mild Eyes: MEGAN, EOMI, Conjunctiva clear ENT: Nose normal, Oropharynx normal Respiratory: Airway patent, Breath sounds clear, Breath sounds equal, Respirations nonlabored Cardiovascular: RRR (initial HR 101 upon arrival; 95 later with exam) GI/: No masses, Bowel sounds normal Musculoskeletal: Normal strength Skin: Warm, Dry, Normal color Neurological: Sensation intact, Motor intact Psychiatric: Affect appropriate, Mood appropriate Interpretation - Radiology Interpretation Radiology Interpretation By: Radiologist Radiology Results: No acute changes Exam Interpreted: Portable CXR - Green Meat Grader Time of Green Meat Grader Interpretation: 10:40 Rate: Normal Rhythm: Sinus Ectopy: None - EKG Interpretation Time of EKG #1: 10:56 Rate: Normal Rhythm: Sinus Ectopy: None [place]: NL ST Segment: Normal Interpretation: No apparent acute changes Re-Evaluation - Re-Evaluation Time of Re-Evaluation: 12:25 Status: Improved Vital Signs Stable: Yes Appearance: NAD Lungs: Clear Skin: Warm and Dry Neuro: Alert and Oriented X3 CV: RRR Physician Notification - Case Discussed Physician Notified: Dr. Perales Time of Notification: 12:50 (Agrees with admission) Critical Care Note - Critical Care Note Total Time (mins): 45 Course - Course Hematology/Chemistry: 10/05/16 05:05 10/04/16 11:36 Orders, Labs, Meds: Lab Review 10/04/16 10/04/16 10:40 11:36 WBC 6.79 RBC 5.28 Hgb 14.2 Hct 43.4 MCV 82.2 MCH 26.9 L MCHC 32.7 RDW Coeff of Dalila 17.2 H Plt Count 291 Immature Gran % (Auto) 0.6 Neut % (Auto) 67.2 Lymph % (Auto) 15.3 [place] % (Auto) 11.2 H Eos % (Auto) 4.7 Baso % (Auto) 1.0 Immature Gran # (Auto) 0.0 Neut # 4.6 Lymph # 1.0 [place] # 0.8 Eos # 0.3 Baso # 0.1 Puncture Site Rr O2 Saturation 95.0 ABG pH 7.512 H* ABG pCO2 39.5 ABG pO2 67.0 L ABG HCO3 31.7 H ABG Total CO2 33 H ABG Base Excess 9 H Joe Test + FiO2 % 21.0 Sodium 143 Potassium 3.9 Chloride 97 L Carbon Dioxide 32 H Anion Gap 17.9 BUN 25 H Creatinine 1.30 Estimated GFR (MDRD) 50.00 BUN/Creatinine Ratio 19.23 Glucose 136 H Calcium 9.4 Total Bilirubin 1.91 H AST 44 H ALT 33 Alkaline Phosphatase 134 Total Creatine Kinase 56 Myoglobin 78 Troponin I 0.0250 B-Natriuretic Peptide 3089 H Total Protein 6.6 Albumin 2.8 L Globulin 3.8 Albumin/Globulin Ratio 0.74 Orders Category Date Time Status ABG DRAW REQUEST Stat CARDIO 10/04/16 10:41 Completed EKG-(IP & OP ONLY) Stat CARDIO 10/04/16 10:51 Completed ACTIVITY .BR with BRP CARE 10/04/16 10:53 Active INTAKE & OUTPUT Q8HR CARE 10/04/16 10:53 Active INTAKE & OUTPUT Q8HR CARE 10/04/16 12:56 Inactive TELEMETRY MONITORING TELE CARE 10/04/16 10:53 Active VITAL SIGNS Q2HR CARE 10/04/16 10:53 Active WEIGH PATIENT 0600 CARE 10/04/16 10:53 Active ABG Stat LAB 10/04/16 10:40 Completed BNP [B-TYPE NATRIURETIC PEPTIDE] Stat LAB 10/04/16 11:36 Completed CBC W/ AUTO DIFF Stat LAB 10/04/16 11:36 Completed COMPREHENSIVE METABOLIC PANEL Stat LAB 10/04/16 11:36 Completed CREATINE KINASE Q10H LAB 10/04/16 11:36 Completed CREATINE KINASE Q10H LAB 10/05/16 05:30 Completed MYOGLOBIN Q10H LAB 10/05/16 05:00 Completed MYOGLOBIN Routine LAB 10/04/16 11:36 Completed TROPONIN I Q10H LAB 10/04/16 11:36 Completed TROPONIN I Q10H LAB 10/05/16 05:30 Completed 0.9 % Sodium Chloride [Saline Flush] MEDS 10/04/16 13:00 Discontinued 1 syr IVF Q8HR Furosemide [Lasix] MEDS 10/04/16 12:46 Discontinued 40 mg IVP ONCE STA RESUSCITATION STATUS Routine OTHERS 10/04/16 12:47 Completed CHEST, 1V AP ONLY Stat RADS 10/04/16 10:40 Completed Medications Generic Name Dose Route Start Last Admin Trade Name Brooke PRN Reason Stop Dose Admin Aspirin 81 mg 10/04/16 13:30 10/05/16 09:13 Aspirin Ec PO 81 mg DAILYWM EMERSON Administration Carvedilol 6.25 mg 10/04/16 13:00 10/05/16 09:10 Coreg PO 6.25 mg BID EMERSON Administration Docusate Sodium 200 mg 10/04/16 13:00 10/05/16 09:09 Colace PO 200 mg DAILY EMERSON Administration Furosemide 40 mg 10/04/16 13:00 10/05/16 05:31 Lasix Tab PO 40 mg BIDAC EMERSON Administration Losartan Potassium 25 mg 10/04/16 13:00 10/05/16 09:10 Cozaar PO 25 mg BID EMERSON Administration Metformin HCl 1,000 mg 10/04/16 13:30 10/05/16 09:10 Glucophage PO 1,000 mg DAILYWM EMERSON Administration Nitroglycerin 0.4 mg 10/04/16 12:56 Nitrostat SL DIRECTED PRN Chest Pain Ranitidine HCl 150 mg 10/04/16 13:00 10/05/16 09:10 Zantac PO 150 mg DAILY EMERSON Administration Sodium Chloride 1 syr 10/05/16 00:31 Saline Flush IVF PRN PRN maintain iv Sodium Chloride 1 syr 10/05/16 05:00 10/05/16 05:04 Saline Flush IVF 1 syr Q8HR EMERSON Administration Spironolactone 25 mg 10/04/16 13:00 10/05/16 09:10 Aldactone PO 25 mg DAILY EMERSON Administration Discontinued Medications Generic Name Dose Route Start Last Admin Trade Name Brooke PRN Reason Stop Dose Admin Aspirin 81 mg 10/04/16 13:00 10/04/16 16:51 Aspirin Ec PO Not Given DAILY EMERSON Furosemide 40 mg 10/04/16 12:46 10/04/16 12:58 Lasix IVP 10/04/16 12:47 40 mg ONCE STA Administration Sodium Chloride 1 syr 10/04/16 13:00 10/04/16 21:25 Saline Flush IVF 1 syr Q8HR EMERSON Administration Vital Signs: Temp Pulse Resp BP Pulse Ox 10/04/16 10:31 96.5 F L 101 H 20 147/101 H 93 L Departure - Departure Time of Disposition: 12:55 Disposition: ADMITTED INPATIENT Discharge Problem: Congestive heart failure Condition: Stable Pt referred to PMD for follow-up: Yes Allergies/Adverse Reactions: Allergies Penicillins Adverse Reaction (Verified 10/04/16 10:43) Rash Home Medications: Ambulatory Orders Aspirin [Aspir 81] 81 mg PO DAILY tab-cap 06/09/15 Docusate Sodium [Colace] 200 mg PO DAILY 08/18/16
[2016-10-04 11:32] LABS: ABG BASE EXCESS 9 (-2.0-2.0); ABG HCO3 31.7 (22.0-26.0); ABG PCO2 39.5 mmHg (35-45); ABG PH 7.512 (7.35-7.45); ABG TCO2 33 (22.0-28.0)
--- NOTE | 2016-10-04 11:52 | DI ---
EXAM: Chest one view, frontal view only. HISTORY: Shortness of air. COMPARISON: 08/18/2016. FINDINGS: Cardiac silhouette is enlarged. Main pulmonary artery is enlarged. There is no vascular congestion. No consolidation, pleural effusion or pneumothorax identified. Osseous structures are intact. IMPRESSION: No acute process.
[2016-10-04 11:55] LABS: BASOPHILS # (AUTO) 0.1 K/uL (0-0.2); EOSINOPHILS # (AUTO) 0.3 K/ul (0.0-0.7); EOSINOPHILS % (AUTO) 4.7 % (0.0-7.0); HEMATOCRIT 43.4 % (37.0-47.0); HEMOGLOBIN 14.2 g/dl (12.0-16.0); IMMATURE GRANULOCYTE % (AUTO) 0.6 % (0.0-5.0); LYMPHOCYTES % (AUTO) 15.3 (10.0-50.0); MEAN CORPUSCULAR HEMOGLOBIN 26.9 pg (27.0-31.0); MEAN CORPUSCULAR HGB CONC 32.7 (31.8-35.4); MEAN CORPUSCULAR VOLUME 82.2 fl (81.0-99.0); MONOCYTES # (AUTO) 0.8 K/uL (0.4-2.0); MONOCYTES % (AUTO) 11.2 (0-10); NEUTROPHILS # (AUTO) 4.6 K/ul (2.0-6.9); NEUTROPHILS % (AUTO) 67.2; PLATELET COUNT 291 10^3/uL (140-440); RED BLOOD COUNT 5.28 10^6/ul (4.20-5.40); WHITE BLOOD COUNT 6.79 K/ul (4.6-10.2)
[2016-10-04 12:07] LABS: ALBUMIN 2.8 g/dL (3.4-5.0); ALBUMIN/GLOBULIN RATIO 0.74; ANION GAP 17.9; BILIRUBIN,TOTAL 1.91 mg/dL (0.00-1.20); BUN/CREATININE RATIO 19.23; CALCIUM 9.4 mg/dL (8.2-10.2); CREATININE 1.3 mg/dL (0.60-1.30); POTASSIUM 3.9 mmol/L (3.5-5.10); TOTAL PROTEIN 6.6 g/dL (5.8-8.1)
[2016-10-04 12:27] LABS: TROPONIN I 0.025 ng/ml (0.0000-0.4000)
[2016-10-04] MEDS ORDERED: LASIX IVP STA (12:46)
[2016-10-04] MEDS ORDERED: NITROSTAT SL PRN (12:56)
[2016-10-04] MEDS ORDERED: NON-FORMULARY MEDICATION (Metformin Hcl [Glucophage] 1,000 MG) PO SCH ×22 (13:00)
[2016-10-04] MEDS ORDERED: ASPIRIN EC PO SCH (13:00)
[2016-10-04 15:12] VITALS: BMI 43.7
[2016-10-04 16:37] LABS: BILIRUBIN,URINE 1+ (NEGATIVE); KETONES,URINE Negative (NEGATIVE); LEUKOCYTE ESTERASE ,URINE 1+ (NEGATIVE); NITRITE,URINE Negative (NEGATIVE); PH,URINE 6.5 (5-9); PROTEIN,URINE 2+ (NEGATIVE); URINE, BLOOD 3+ (NEGATIVE)
[2016-10-04] MEDS: GLUCOPHAGE PO SCH (16:49)
[2016-10-04] MEDS: COLACE PO SCH (16:49)
[2016-10-04] MEDS: ZANTAC PO SCH (16:49)
[2016-10-04] MEDS: COREG PO SCH ×2 (16:50→21:25)
[2016-10-04] MEDS: ASPIRIN EC PO SCH (16:50)
[2016-10-04] MEDS: ALDACTONE PO SCH (16:50)
[2016-10-04] MEDS: LASIX TAB PO SCH (16:50)
[2016-10-04] MEDS: COZAAR PO SCH ×2 (16:50→21:25)
[2016-10-04 16:52] LABS: ADD URINE MICROSCOPIC YES
[2016-10-05] MEDS: LASIX TAB PO SCH ×3 (05:31→17:19)
[2016-10-05 06:38] LABS: TROPONIN I 0.028 ng/ml (0.0000-0.4000)
[2016-10-05] MEDS: COLACE PO SCH (09:09)
[2016-10-05] MEDS: ZANTAC PO SCH (09:10)
[2016-10-05] MEDS: COZAAR PO SCH ×2 (09:10→20:27)
[2016-10-05] MEDS: COREG PO SCH ×2 (09:10→17:19)
[2016-10-05] MEDS: ALDACTONE PO SCH (09:10)
[2016-10-05] MEDS: GLUCOPHAGE PO SCH (09:10)
[2016-10-05 09:12] LABS: BASOPHILS % (AUTO) 0.5 % (0.0-3.0); EOSINOPHILS # (AUTO) 0.2 K/ul (0.0-0.7); EOSINOPHILS % (AUTO) 2.7 % (0.0-7.0); HEMOGLOBIN 13.9 g/dl (12.0-16.0); IMMATURE GRANULOCYTE % (AUTO) 0.7 % (0.0-5.0); LYMPHOCYTES # (AUTO) 1.1 K/uL (0.60-3.4); LYMPHOCYTES % (AUTO) 14.4 (10.0-50.0); MEAN CORPUSCULAR HEMOGLOBIN 27.4 pg (27.0-31.0); MEAN CORPUSCULAR HGB CONC 33.1 (31.8-35.4); MEAN CORPUSCULAR VOLUME 82.7 fl (81.0-99.0); MONOCYTES # (AUTO) 0.9 K/uL (0.4-2.0); MONOCYTES % (AUTO) 12.2 (0-10); NEUTROPHILS # (AUTO) 5.2 K/ul (2.0-6.9); NEUTROPHILS % (AUTO) 69.5; PLATELET COUNT 273 10^3/uL (140-440); RED BLOOD COUNT 5.08 10^6/ul (4.20-5.40); WHITE BLOOD COUNT 7.52 K/ul (4.6-10.2)
[2016-10-05] MEDS: ASPIRIN EC PO SCH (09:13)
[2016-10-05 09:23] LABS: ALBUMIN 2.5 g/dL (3.4-5.0); ALBUMIN/GLOBULIN RATIO 0.74; ANION GAP 22.8; BILIRUBIN,TOTAL 1.72 mg/dL (0.00-1.20); BUN/CREATININE RATIO 22.22; CALCIUM 9.1 mg/dL (8.2-10.2); CREATININE 1.17 mg/dL (0.60-1.30); POTASSIUM 3.8 mmol/L (3.5-5.10); TOTAL PROTEIN 5.9 g/dL (5.8-8.1)
--- NOTE | 2016-10-05 10:44 | HP ---
CHIEF COMPLAINT: Shortness of breath. HISTORY OF PRESENT ILLNESS: The patient claimed to have been short of breath and this patient had been diagnosed with congestive heart failure. She was admitted because of swelling of both lower extremities and during that time, the patient had a BNP that was beyond 3,000. The patient claimed that her shortness of breath had been for some time, but worse today prompting her to summon the ambulance to bring her to the emergency room. She was then evaluated and the chest x-ray does not show any active disease, although the pulmonary vessels were enlarged. The patient claimed that she had not been eating very since she is not able to stand and cook. She lives with her daughter or her daughter lives with her. She goes to wound care for the areas on both legs. The patient also claimed that she had noted blood in her urine about two weeks ago or more according to the daughter. The daughter could see blood on the wipes that she uses. There were no blood clots and the patient denies any pain during the urination. There was no urinalysis done in the emergency room. PAST PERSONAL HISTORY: Consisted of congestive heart failure and had previous admissions for the problem, hypertension, diabetes mellitus type II, elevated BMI, COPD, degenerative osteoarthritis. She also had chronic kidney disease and previous hemorrhoidectomy and hysterectomy. The patient had an echocardiogram a couple of years ago and ejection fraction 25 to 30. The patient also had previous pneumonia, coronary artery disease and previous myocardial infarction. She also was diagnosed with chronic gastroesophageal reflex disease. She had been advised repeatedly to lose weight and the patient had not tried or was not successful in doing so. FAMILY HISTORY: Brother is diabetic with kidney disease. Sister has hypertension with diabetes. Father was diabetic and mother had congestive heart failure. Mother was also diabetic. SOCIAL HISTORY: The patient is single and resides with her daughter, Raquel. She still smokes, although not as heavy. No alcoholic beverages. MEDICATIONS: Prior to this admission Aldactone 25 mg daily Aspirin 31 mg daily Zantac 150 mg twice a day Metformin 1,000 mg daily Carvedilol 6.25 mg twice a day Nitroglycerin 0.4 mg prn, no more than three Losartan 25 mg twice a day Furosemide 40 mg twice a day Colace 200 mg daily ALLERGIES: Penicillin. REVIEW OF SYSTEMS: CONSTITUTIONAL: The patient denies any fever or chills and no fatigue, but short of breath. DESIGN ANALYST: Denies any headaches or problems with balance, except the generalized weakness. VISUAL: The patient denies any blurred vision, double vision or transient loss of vision. AUDITORY: The patient's hearing is slightly diminished, but denies any tinnitus , pain or drainage. RESPIRATORY: The patient has no significant cough, but does have shortness of breath even with minimal exertion. No hemoptysis. CARDIOVASCULAR: Denies any chest pain or chest tightness. GASTROINTESTINAL: Denies any nausea, anorexia or dysphagia. He denies any abdominal pain. GENITOURINARY: The patient claims to have blood in her urine for the last two weeks or more, but no pain. No blood clots. MUSCULOSKELETAL: The patient has weakness, generalized and had difficulty ambulating. This might be due partly to the shortness of breath. The patient is also markedly obese. INTEGUMENT: The patient vesicular eruptions on both lower extremities. It has some ulcerations that are superficial and some of them are new secondary to ruptured vesicles. This patient had been advised previously and repeatedly to elevate her legs above her heart at home. ENDOCRINE: The patient denies any polyuria or polydipsia, but she has a diagnosis of type II diabetes mellitus. HEMATOLOGIC: No history of prolonged bleeding. The patient, however, now has blood in her urine. PSYCHIATRIC: Affect is normal. The patient is always pleasant. PHYSICAL EXAMINATION: GENERAL: We have a 66 year old black female admitted to the hospital because of increasing shortness of breath. The patient's chest x-ray showed no acute pulmonary infiltrates or congestive heart failure changes. The patient has cardiomegaly and enlarged main pulmonary artery, probably indicating pulmonary hypertension. VITAL SIGNS: In the emergency room showed a temperature of 96.5, pulse of 101, blood pressure 147/101, respiratory rate 20, oxygen saturation 93 at 2 liters. LAB: Arterial blood gases at room air showed oxygen saturation 95, pH 7.512, PCO2 39.5, PO2 67, carbonate 31.7, total C02 33, base excess 9. BUN 25, creatinine 1.30, E GFR 50. Total bilirubin slightly elevated at 1.91, AST 44. BNP 3,089. Albumin 2.8. HEAD: Unremarkable. FACE: Symmetrical and equal with no facial weakness. No remarkable tenderness in the frontal or maxillary sinus areas to palpation under pressure. EYES: Pupils equal/reactive to light. Conjunctivae not pale. Sclerae not icteric. THROAT: No inflammation, tumors or exudate. NECK: No masses. No bruit. No tenderness. No rigidity. CHEST: Essentially symmetrical and equal with acceptable expansion. LUNGS: Breath right lung with good air exchange and a few rales at the bases. More rales on the left lower. No expiratory wheezing. HEART: Audible and regular, slightly tachycardic. No murmurs. ABDOMEN: Markedly protuberant, soft with no remarkable tenderness. Difficult to palpate a mass for this size. LOWER EXTREMITIES: Bilaterally edematous with raw surfaces and also vesicular eruptions. Pitting edema is present including the area above the knee. UPPER EXTREMITIES: Symmetrical and equal. ASSESSMENT: 1. CONGESTIVE HEART FAILURE 2. CHRONIC KIDNEY DISEASE STAGE III 3. HYPERTENSION CONTROLLED 4. DIABETES MELLITUS TYPE II 5. CARDIOMEGALY WITH DECREASED EJECTION FRACTION 25 TO 30 6. MARKEDLY ELEVATED BMI 7. GROSS HEMATURIA, ETIOLOGY UNDETERMINED 8. HISTORY OF MYOCARDIAL INFARCTION PROGNOSIS: Poor. PLAN: I had advised the patient with her daughter in the room and the nurse Kim that she needs to really lose some weight and follow a diet. She also needs to elevate her legs at home to prevent swelling and the blisters that she has developing. We will do a CT scan of the abdomen and pelvis and if there is blood in the urine when it is catheterized. Cardiology consultation will be requested. LALITO
--- NOTE | 2016-10-05 12:21 | CT ---
Exam: CT of the abdomen pelvis without intravenous contrast. Comparison: 08/20/2014. Reason for exam: Hematuria. FINDINGS: Right-sided pleural effusion with overlying atelectasis or pneumonia in the partially windy ged lung bases. The partially imaged heart appears prominent in size. Image interpretation is limited by the lack of intravenous contrast and attenuation with photon star vation secondary to patient's body habitus. The patient has soft tissues that are not completely evaluated as they are outside the field of view . The liver, spleen, and pancreas appear grossly unremarkable within the limitations of the examinatio n. No hydronephrosis, hydroureter, or nephrolithiasis is seen in either kidney. There are inflammatory changes in the mesenteric fat surrounding both kidneys. There is generalized mesenteric edema. No intra-abdominal free air. No pelvic free fluid. No discrete small bowel dilatation. Inflammatory changes are seen within the patient's subcutaneous fat suggests panniculitis and edema. No suspicious appearing osteoblastic or osteolytic lesions. Impression: 1. Right-sided pleural effusion with atelectasis or pneumonia. 2. Nonspecific inflammatory changes are seen throughout the abdomen consistent with mesenteric mckay a. Recommend follow up imaging with intravenous contrast for further evaluation. 3. No hydronephrosis, hydroureter, or nephrolithiasis. There are inflammatory changes seen in the mesenteric fat surrounding both kidneys. Contrasted CT examination may be performed for further isabel acterization. 4. Inflammatory changes in the subcutaneous fat suggesting panniculitis and / or edema. 5. Likely cardiomegaly.
[2016-10-05] MEDS ORDERED: NITROSTAT SL PRN (15:36)
[2016-10-05] MEDS ORDERED: LEVAQUIN 500 MG in PREMIX 100 ML D5W 1 BAG IV SCH (21:00)
[2016-10-05] MEDS: LASIX IVP SCH (23:07)
[2016-10-05] MEDS ORDERED: LEVAQUIN ONE (23:09)
[2016-10-05] MEDS ORDERED: LEVAQUIN 100 ML IV ONE (23:11)
[2016-10-05] MEDS: SODIUM CHLORIDE 1,000 ML IV SCH (23:16)
[2016-10-06] MEDS: ZANTAC PO SCH (05:45)
[2016-10-06] MEDS: LASIX IVP SCH ×2 (05:45→17:41)
[2016-10-06] MEDS: ASPIRIN EC PO SCH (08:53)
[2016-10-06] MEDS: ALDACTONE PO SCH (08:53)
[2016-10-06] MEDS: COLACE PO SCH (08:53)
[2016-10-06] MEDS: GLUCOPHAGE PO SCH (08:53)
[2016-10-06] MEDS: COREG PO SCH ×2 (08:54→17:41)
[2016-10-06] MEDS: COZAAR PO SCH ×2 (08:54→20:34)
[2016-10-06] MEDS ORDERED: TYLENOL PO STA ×2 (09:47→22:27)
--- NOTE | 2016-10-06 13:13 | PCM.CONS ---
CONSULTING PROVIDER: Dr. LUIZA SAEZ ATTENDING PROVIDER: Dr. [facility] DATE OF SERVICE: 10/06/16 SUBJECTIVE: This 66 year old BLACK/ F was hospitalized 10/04/16. This patient is hospitalized with CHF. The patient has refractory CHF. She is noncompliant of followup, medications and lifestyle. This morning three sisters and daughter are present in the room. According to daughter, the patient was seen by Dr. Dickinson and Dr. Bullard and explained to them how bad the heart was and according to Dr. Bullard, she was not a candidate for any surgical intervention including heart transplant. REVIEW OF SYSTEMS: CONSTITUTIONAL: No night sweats. No fatigue, malaise, lethargy. No fever or chills. HEENT: Eyes: No visual changes. No eye pain. No eye discharge. ENT: No runny nose. No epistaxis. No sinus pain. No odynophagia. No congestion. RESPIRATORY: No cough, no congestion. No hemoptysis. CARDIOVASCULAR: No angina symptoms. No CHF symptoms. No atypical chest pain for CAD. No palpitations. Shortness of breath on minimal exertion. GASTROINTESTINAL: No abdominal pain. No nausea or vomiting. No diarrhea or constipation. No hematemesis. No hematochezia. GENITOURINARY: No urgency. No frequency. No dysuria. No hematuria. No obstructive symptoms. No discharge. No pain. No significant abnormal bleeding. MUSCULOSKELETAL: No musculoskeletal pain; no joint swelling. NEUROLOGICAL: Awake, alert, oriented to time, place and person. No headache. No neck pain. No syncope. No seizures. No dizziness. PSYCHIATRIC: Not anxious. No depression. No suicidal thoughts. No homicidal thoughts. SKIN: No rash. No lesions. No wounds. ENDOCRINE: No unexplained weight loss. No weight gain. HEMATOLOGIC/LYMPHATIC: No anemia. No purpura. No petechiae. No prolonged or excessive bleeding. No palpable lymph nodes. PHYSICAL EXAMINATION: GENERAL: The patient is awake, alert and oriented, sitting on the side of the bed in no distress. VITAL SIGNS: Temperature 96.0 F, Pulse 77, Respiratory Rate 20, BP 110/0, Pulse Ox 99% HEENT: Head normocephalic, atraumatic. Eyes: Extraocular muscles are intact. Pupils are equal, round and reactive to light and accommodation. Ears: No lesions. Nose appeared normal. Throat: No exudate or erythema. NECK: Supple. No JVD, no carotid bruit. No lymphadenopathy or thyromegaly. LUNGS: Decreased breath sounds. Clear to auscultation. Percussion note normal. Chest symmetrical. HEART: S1, S2; questionable S3. No murmurs. No cyanosis or clubbing. No ascites. Pulses: Dorsalis pedis and posterior tibial pulses +1 to +2 both sides. ABDOMEN: Soft. Non-tender. Bowel sounds active. No CVA tenderness. No mass felt. EXTREMITIES: Trace to 1+ pitting edema. Full range of motion of all extremities, equal. NEUROLOGIC: No focal deficit. Cranial nerves II through XII are grossly intact. No headache, no double vision or headache. SKIN: Not dry. Intact. Turgor-normal. LYMPHATIC: No palpable lymph nodes/no lymphedema. MUSCULOSKELETAL: Normal joints with no swelling. Muscle tone is normal. LAB REVIEW: 10/05/16 05:05 10/05/16 05:05 10/05/16 05:05: WBC 7.52, RBC 5.08, Hgb 13.9, Hct 42.0, MCV 82.7, MCH 27.4, MCHC 33.1, RDW Coeff of Dalila 17.3 H, Plt Count 273, Immature Gran % (Auto) 0.7, Neut % (Auto) 69.5, Lymph % (Auto) 14.4, [place] % (Auto) 12.2 H, Eos % (Auto) 2.7 , Baso % (Auto) 0.5, Immature Gran # (Auto) 0.1, Neut # 5.2, Lymph # 1.1, [place] # 0.9, Eos # 0.2, Baso # 0.0, Sodium 145, Potassium 3.8, Chloride 99, Carbon Dioxide 27, Anion Gap 22.8, BUN 26 H, Creatinine 1.17, Estimated GFR (MDRD) 56.00, BUN/Creatinine Ratio 22.22, Glucose 120 H, Calcium 9.1, Total Bilirubin 1.72 H, AST 39 H, ALT 29, Alkaline Phosphatase 118, Total Protein 5.9, Albumin 2.5 L, Globulin 3.4, Albumin/Globulin Ratio 0.74 ASSESSMENT: 1. Refractory CHF with poor ejection fraction 2. Dilated cardiomyopathy 3. Hypertension 4. Dyslipidemia RECOMMENDATIONS/PLAN: 1. Change to IV Lasix 2. Continue Coreg, Losartan and Aldactone. 3. CHF discussed and advised to restrict fluid and not to drink unnecessary fluid. 4. Weigh every day; if 2 lbs more than usual take extra diuretic Lasix. 5. Keep legs elevated. Plan and coordination of the patient's care discussed in the presence of Stockroom Clerk and Nurse. CONDITION: Stable PROGNOSIS: Poor SCRIBED BY: YOVANI SUTTON Health Systems Analyst scribed while in presence of service performed by Dr. LUIZA SAEZ on 10/06/16 (0624)
--- NOTE | 2016-10-06 13:20 | CONS ---
DATE OF CONSULTATION: 10/05/16 REASON FOR CONSULTATION: Short of air HISTORY OF PRESENT ILLNESS: The patient is a 66 year old black female hospitalized with congestive heart failure. The patient has refractory congestive heart failure with very poor ejection fraction. The patient had leg edema with ulcers. The patient's leg edema is a lot. The patient is non-compliant. The patient is not taking her medications as prescribed. She has very poor tract record for followup. Onset- one month ago; wore day of admission; dyspnea at res, with exertion. REVIEW OF SYSTEMS: CONSTITUTIONAL: No night sweats. Fatigue. No fever or chills. HEENT: Eyes: No visual changes. No eye pain. No eye discharge. ENT: No runny nose. No epistaxis. No sinus pain. No sore throat. No odynophagia. No ear pain. No congestion. RESPIRATORY: No cough, no congestion. No hemoptysis. CARDIOVASCULAR: No angina symptoms. CHF symptoms. No atypical chest pain for CAD. No palpitations. No shortness of breath. GASTROINTESTINAL: No abdominal pain. No nausea or vomiting. No diarrhea or constipation. No hematemesis. No hematochezia. GENITOURINARY: No urgency. No frequency. No dysuria. No hematuria. No obstructive symptoms. No discharge. No pain. No significant abnormal bleeding. MUSCULOSKELETAL: No musculoskeletal pain. No joint swelling. NEUROLOGICAL: No headache. No neck pain. No syncope. No seizures. No dizziness. PSYCHIATRIC: Not anxious. No depression. No suicidal thoughts. No homicidal thoughts. SKIN: No rash. No lesions. No wounds. Warm. Dry, has stage II pressure area to inner buttocks and coccyx. ENDOCRINE: No unexplained weight loss. No weight gain. HEMATOLOGIC/LYMPHATIC: No anemia. No purpura. No petechiae. No prolonged or excessive bleeding. No palpable lymph nodes. MEDICATIONS: Aspirin Zantac Coreg Losartan Potassium Furosemide Colace Metformin Aldactone Nitroglycerin ALLERGIES: Penicillins PAST MEDICAL HISTORY/ PAST SURGICAL HISTORY: Peripheral neuropathy Headaches Acute myocardial infarct CHF Hypertension COPD GERD Arthritis Insulin Dependant Diabetes Mellitus Anxiety Depression Suicide attempt Umbilical hernia repair Hysterectomy Hemorrhoidectomy Last echo 07/26/16-[facility]; enlarged left atrial and left ventricle cavities, Global severe hypokinesia-ejection fraction 20%. SOCIAL/PERSONAL/FAMILY HISTORY: The patient is single. Smoker 1/2 pack per day and no alcohol use. PHYSICAL EXAMINATION: GENERAL: The patient is oriented times 3. VITAL SIGNS: Pulse 101, blood pressure 147/101, temperature 96.5 and oxygen saturation 93%. HEENT: Head normocephalic, atraumatic. Eyes: Extraocular muscles are intact. Pupils are equal, round and reactive to light and accommodation. Ears: No lesions. Nose appeared normal. Throat: No exudate or erythema. NECK: Supple. No JVD, no carotid bruit. No lymphadenopathy or thyromegaly. LUNGS: Clear with creps. Percussion note normal. Chest symmetrical. HEART: S1, S2, no S3. No murmurs. No cyanosis or clubbing. No ascites. Pulses: Dorsalis pedis and posterior tibial pulses +1. ABDOMEN: Soft. Nontender. Bowel sounds active. No CVA tenderness. No mass felt. EXTREMITIES: Trace edema. Full range of motion of all extremities, equal. NEUROLOGIC: No focal deficit. Cranial nerves II through XII are grossly intact. No headache, no double vision or headache. SKIN: Not dry. Intact. Turgor - normal. LYMPHATIC: No palpable lymph nodes/no lymphedema. MUSCULOSKELETAL: Normal joints with no swelling. Muscle tone is normal. LABS: CBC: Within normal limits hgb 14.2, hct 43, WBC 6,700 normal differential, creatinine 1.3, BUN 25, potassium 3.9 and BNP 3,000; ABG's () pH 7.512, pO2 67.0, HCO3 31.7- total [id number] excess-9; CMP: Glucose 136-BUN/Creatinine 25/ 1.30-Total Bilirubin 1.91-AST 44-A1b 2.8. Chest x-ray no acute process. ASSESSMENT: 1. CHF 2. Dilated Cardiomyopathy with poor ejection fraction 3. Obesity 4. COPD 5. Hypertension 6.Neuropathy PLAN: 1. Request heart transplant 2. Not a candidate any way 3. Lovenox 4. BMI 23+ less than ideal 5. Dash diet discussed 6. Elevate legs 7. Take home medications regularly 8. Agreed with Losartan, Lasix, Aldactone and Coreg combination. The patient takes the medication then her CHF would be controlled. She has ejection fraction of 20%. PROGNOSIS: Poor Thanks for referral will follow. LALITO
[2016-10-06 15:29] LABS: BILIRUBIN,URINE 3+ (NEGATIVE); KETONES,URINE 1+ (NEGATIVE); LEUKOCYTE ESTERASE ,URINE 3+ (NEGATIVE); NITRITE,URINE Negative (NEGATIVE); PH,URINE 5.5 (5-9); PROTEIN,URINE 3+ (NEGATIVE); URINE, BLOOD 3+ (NEGATIVE)
[2016-10-06 15:34] LABS: ADD URINE MICROSCOPIC YES
[2016-10-06 15:38] LABS: BACTERIA,URINE 1+ (NOT PRESENT)
[2016-10-06] MEDS: LEVAQUIN 500 MG in PREMIX 100 ML D5W 1 BAG IV SCH (20:35)
[2016-10-07 04:55] LABS: BASOPHILS % (AUTO) 0.5 % (0.0-3.0); EOSINOPHILS # (AUTO) 0.2 K/ul (0.0-0.7); EOSINOPHILS % (AUTO) 2.8 % (0.0-7.0); HEMATOCRIT 39.1 % (37.0-47.0); HEMOGLOBIN 13.3 g/dl (12.0-16.0); IMMATURE GRANULOCYTE % (AUTO) 1.3 % (0.0-5.0); LYMPHOCYTES % (AUTO) 15.4 (10.0-50.0); MEAN CORPUSCULAR HEMOGLOBIN 27.7 pg (27.0-31.0); MEAN CORPUSCULAR VOLUME 81.5 fl (81.0-99.0); MONOCYTES # (AUTO) 0.8 K/uL (0.4-2.0); MONOCYTES % (AUTO) 11.8 (0-10); NEUTROPHILS # (AUTO) 4.3 K/ul (2.0-6.9); NEUTROPHILS % (AUTO) 68.2; PLATELET COUNT 234 10^3/uL (140-440); WHITE BLOOD COUNT 6.36 K/ul (4.6-10.2)
[2016-10-07 05:14] LABS: ALBUMIN 2.2 g/dL (3.4-5.0); ALBUMIN/GLOBULIN RATIO 0.59; ANION GAP 16.2; BILIRUBIN,TOTAL 1.67 mg/dL (0.00-1.20); BUN/CREATININE RATIO 23.2; CREATININE 1.25 mg/dL (0.60-1.30); POTASSIUM 4.2 mmol/L (3.5-5.10); TOTAL PROTEIN 5.9 g/dL (5.8-8.1)
[2016-10-07] MEDS: ZANTAC PO SCH (05:36)
[2016-10-07] MEDS: LASIX IVP SCH ×2 (05:37→16:46)
[2016-10-07] MEDS: COLACE PO SCH (08:48)
[2016-10-07] MEDS: ASPIRIN EC PO SCH (08:48)
[2016-10-07] MEDS: ALDACTONE PO SCH (08:48)
[2016-10-07] MEDS: GLUCOPHAGE PO SCH (08:48)
[2016-10-07] MEDS: COZAAR PO SCH ×2 (08:48→20:39)
[2016-10-07] MEDS: COREG PO SCH ×2 (08:48→16:46)
[2016-10-07] MEDS: SODIUM CHLORIDE 1,000 ML IV SCH (08:49)
[2016-10-07] MEDS: LEVAQUIN 500 MG in PREMIX 100 ML D5W 1 BAG IV SCH (20:39)
[2016-10-08] MEDS: LASIX IVP SCH ×2 (06:04→16:46)
[2016-10-08] MEDS: ZANTAC PO SCH (06:08)
[2016-10-08] MEDS: ALDACTONE PO SCH (09:22)
[2016-10-08] MEDS: COLACE PO SCH (09:23)
[2016-10-08] MEDS: GLUCOPHAGE PO SCH (09:23)
[2016-10-08] MEDS: ASPIRIN EC PO SCH (09:23)
[2016-10-08] MEDS: COZAAR PO SCH ×2 (09:23→21:44)
[2016-10-08] MEDS: BACTROBAN TP SCH (09:23)
[2016-10-08] MEDS: COREG PO SCH ×2 (09:23→16:46)
[2016-10-08] MEDS: SODIUM CHLORIDE 1,000 ML IV SCH (16:44)
[2016-10-08] MEDS: LEVAQUIN 500 MG in PREMIX 100 ML D5W 1 BAG IV SCH (21:44)
[2016-10-09 05:21] LABS: BASOPHILS # (AUTO) 0.1 K/uL (0-0.2); BASOPHILS % (AUTO) 1.1 % (0.0-3.0); EOSINOPHILS # (AUTO) 0.2 K/ul (0.0-0.7); EOSINOPHILS % (AUTO) 2.8 % (0.0-7.0); HEMATOCRIT 38.6 % (37.0-47.0); IMMATURE GRANULOCYTE % (AUTO) 0.9 % (0.0-5.0); LYMPHOCYTES # (AUTO) 1.1 K/uL (0.60-3.4); LYMPHOCYTES % (AUTO) 20.6 (10.0-50.0); MEAN CORPUSCULAR HEMOGLOBIN 27.3 pg (27.0-31.0); MEAN CORPUSCULAR HGB CONC 33.7 (31.8-35.4); MEAN CORPUSCULAR VOLUME 81.1 fl (81.0-99.0); MONOCYTES # (AUTO) 0.8 K/uL (0.4-2.0); MONOCYTES % (AUTO) 15.1 (0-10); NEUTROPHILS # (AUTO) 3.1 K/ul (2.0-6.9); NEUTROPHILS % (AUTO) 59.5; PLATELET COUNT 219 10^3/uL (140-440); RED BLOOD COUNT 4.76 10^6/ul (4.20-5.40); WHITE BLOOD COUNT 5.29 K/ul (4.6-10.2)
[2016-10-09] MEDS: ZANTAC PO SCH (05:38)
[2016-10-09] MEDS: LASIX IVP SCH ×2 (05:39→17:07)
[2016-10-09 05:51] LABS: ALBUMIN 2.2 g/dL (3.4-5.0); ALBUMIN/GLOBULIN RATIO 0.63; ANION GAP 15.2; BILIRUBIN,TOTAL 1.4 mg/dL (0.00-1.20); BUN/CREATININE RATIO 22.48; CALCIUM 8.8 mg/dL (8.2-10.2); CREATININE 1.29 mg/dL (0.60-1.30); POTASSIUM 4.2 mmol/L (3.5-5.10); TOTAL PROTEIN 5.7 g/dL (5.8-8.1)
[2016-10-09] MEDS: ALDACTONE PO SCH (08:33)
[2016-10-09] MEDS: BACTROBAN TP SCH (08:33)
[2016-10-09] MEDS: COZAAR PO SCH ×2 (08:34→20:24)
[2016-10-09] MEDS: COREG PO SCH ×2 (08:34→17:07)
[2016-10-09] MEDS: ASPIRIN EC PO SCH (08:34)
[2016-10-09] MEDS: GLUCOPHAGE PO SCH (08:34)
[2016-10-09] MEDS: COLACE PO SCH (08:34)
--- NOTE | 2016-10-09 10:26 | CONS ---
DATE OF SERVICE: 10/07/16 CONSULT FOLLOWUP SUBJECTIVE: The patient is a 66 year old female hospitalized with CHF. The patient's condition has steadily improved and she is sitting up in the chair and talking without being short of breath. Crowe Catheter draining mildly blood tinged urine. REVIEW OF SYSTEMS: CONSTITUTIONAL: No night sweats. No fatigue, malaise, lethargy. No fever or chills. HEENT: Eyes: No visual changes. No eye pain. No eye discharge. ENT: No runny nose. No epistaxis. No sinus pain. No sore throat. No odynophagia. No ear pain. No congestion. RESPIRATORY: No cough, no congestion. No hemoptysis. CARDIOVASCULAR: No angina symptoms. No CHF symptoms. No atypical chest pain for CAD. No palpitations. Shortness of breath on minimal exertion as usual. No PND. No Orthopnea. GASTROINTESTINAL: No abdominal pain. No nausea or vomiting. No diarrhea or constipation. No hematemesis. No hematochezia. GENITOURINARY: No urgency. No frequency. No dysuria. No hematuria. No obstructive symptoms. No discharge. No pain. No significant abnormal bleeding. MUSCULOSKELETAL: No musculoskeletal pain. No joint swelling. No arthritis. NEUROLOGICAL: No headache. No neck pain. No syncope. No seizures. No dizziness. PSYCHIATRIC: Not anxious. No depression. No suicidal thoughts. No homicidal thoughts. SKIN: No rash. No lesions. No wounds. ENDOCRINE: No unexplained weight loss. No weight gain. HEMATOLOGIC/LYMPHATIC: No anemia. No purpura. No petechiae. No prolonged or excessive bleeding. No palpable lymph nodes. PHYSICAL EXAMINATION: GENERAL: The patient is oriented to time, place and person. VITAL SIGNS: Temperature 97, pulse 84, respiratory rate 22, blood pressure 90/ 30 and pulse ox 100%. HEENT: Head normocephalic, atraumatic. Eyes: Extraocular muscles are intact. Pupils are equal, round and reactive to light and accommodation. Ears: No lesions. Nose appeared normal. Throat: No exudate or erythema. NECK: Supple. No JVD, no carotid bruit. No lymphadenopathy or thyromegaly. LUNGS: Decreased breath sounds but clear to auscultation. Percussion note normal. Chest symmetrical. HEART: S1, S2, no S3. No murmurs. No cyanosis or clubbing. No ascites. Pulses: Dorsalis pedis and posterior tibial pulses +1 to +2 both sides. ABDOMEN: Soft. Nontender. Bowel sounds active. No CVA tenderness. No mass felt. EXTREMITIES: No edema. Full range of motion of all extremities, equal. NEUROLOGIC: No focal deficit. Cranial nerves II through XII are grossly intact. No headache, no double vision or headache. SKIN: Not dry. Intact. Turgor - normal. LYMPHATIC: No palpable lymph nodes/no lymphedema. MUSCULOSKELETAL: Normal joints with no swelling. Muscle tone is normal. LABS: BNP seems to be improving. Hgb 13, hct 39, WBC 6,300 normal differential, creatinine 1.2, BUN 29, potassium 4.2 ASSESSMENT: 1. CHF Refractory 2. Dilated Cardiomyopathy with poor ejection fraction 3. Obesity 4. Diabetes Mellitus RECOMMENDATIONS: 1. Continue Carvedilol 2. Aspirin 3. Lasix 4. Aldactone 5. Small dose Cozaar 6. Levofloxacin CONDITION: Stable PROGNOSIS: Poor MTDD
--- NOTE | 2016-10-09 11:33 | CONS ---
DATE OF SERVICE: 10/08/16 CONSULT FOLLOWUP SUBJECTIVE: The patient is a 66 year old black female hospitalized with CHF Refractory with generalized anasarca. The patient's condition has steadily improved. Her leg swelling and generalized anasarca is slowly resolving. The patient is comfortable sitting up the in chair eating. REVIEW OF SYSTEMS: CONSTITUTIONAL: No night sweats. No fatigue, malaise, lethargy. No fever or chills. HEENT: Eyes: No visual changes. No eye pain. No eye discharge. ENT: No runny nose. No epistaxis. No sinus pain. No sore throat. No odynophagia. No ear pain. No congestion. RESPIRATORY: No cough, no congestion. No hemoptysis. CARDIOVASCULAR: No angina symptoms. No CHF symptoms. No atypical chest pain for CAD. No palpitations. Mild shortness of breath on exertion. GASTROINTESTINAL: No abdominal pain. No nausea or vomiting. No diarrhea or constipation. No hematemesis. No hematochezia. GENITOURINARY: No urgency. No frequency. No dysuria. No hematuria. No obstructive symptoms. No discharge. No pain. No significant abnormal bleeding. MUSCULOSKELETAL: No musculoskeletal pain. No joint swelling. No arthritis. NEUROLOGICAL: No headache. No neck pain. No syncope. No seizures. No dizziness. PSYCHIATRIC: Not anxious. No depression. No suicidal thoughts. No homicidal thoughts. SKIN: No rash. No lesions. No wounds. ENDOCRINE: No unexplained weight loss. No weight gain. HEMATOLOGIC/LYMPHATIC: No anemia. No purpura. No petechiae. No prolonged or excessive bleeding. No palpable lymph nodes. PHYSICAL EXAMINATION: GENERAL: The patient is oriented to time, place and person. VITAL SIGNS: Temperature 98, pulse 80, respiratory rate 15, blood pressure 90 systolic. HEENT: Head normocephalic, atraumatic. Eyes: Extraocular muscles are intact. Pupils are equal, round and reactive to light and accommodation. Ears: No lesions. Nose appeared normal. Throat: No exudate or erythema. NECK: Supple. No JVD, no carotid bruit. No lymphadenopathy or thyromegaly. LUNGS: Decreased breath sounds but clear to auscultation. Percussion note normal. Chest symmetrical. HEART: S1, S2, no S3. No murmurs. No cyanosis or clubbing. No ascites. Pulses: Dorsalis pedis and posterior tibial pulses +1 to +2 both sides. ABDOMEN: Soft. Nontender. Bowel sounds active. No CVA tenderness. No mass felt. EXTREMITIES: No edema. Full range of motion of all extremities, equal. NEUROLOGIC: No focal deficit. Cranial nerves II through XII are grossly intact. No headache, no double vision or headache. SKIN: Not dry. Intact. Turgor - normal. LYMPHATIC: No palpable lymph nodes/no lymphedema. MUSCULOSKELETAL: Normal joints with no swelling. Muscle tone is normal. ASSESSMENT: 1. Refractory CHF 2. Dilated cardiomyopathy 3. Obesity, morbid 4. Dyslipidemia 5. Diabetes Mellitus RECOMMENDATIONS: 1. Agreed with patient's medications with Losartan, Spirolactone. 2. IV Lasix is being given 3. The patient has been seen by Invasive Cardiology and Cardiothoracic surgeon a couple of years ago. She is not surgical candidate. 4. The patient has declined to be referred anywhere else like [place] or [place] etc. for possibility of ventricle assist device or heart transplant evaluation. In my option she is not a candidate for heart transplant. CONDITION: Stable PROGNOSIS: Poor MTDD
--- NOTE | 2016-10-09 11:46 | PN ---
DATE OF VISIT: 10/05/16 The patient is alert and oriented. She is markedly edematous including the abdomen. This patient has developed some vesicular eruptions in the abdomen. Chest x-ray showed cardiomegaly and the main pulmonary artery is enlarged. No vascular congestion is noted. The CT scan of the abdomen and pelvis without contrast showed right sided pleural effusion probably with atelectasis or pneumonia. Nonspecific inflammatory changes in the abdomen consistent with mesenteric edema. Follow up imaging with IV contrast. No hydronephrosis or hydroureter. There are inflammatory changes in the mesenteric fat surrounding both kidneys. CT with contrast may help define the problem. Inflammatory changes in the subcutaneous fat suggesting panniculitis and/or edema. Likely cardiomegaly. The patient's condition has deteriorated from previous. This patient has ulcerations in both legs. I had talked to Dr. Mayes, Management And Budget Analyst who was on consultation. He told me that this patient has cardiomegaly and dilated cardiomyopathy with ejection fraction of 20%. Her prognosis is very poor. She is not a candidate for transplant. LUNGS: The patient has rales on both lung moseley, more on the left side. No expiratory wheezing. HEART: Audible and regular, not tachycardic. ABDOMEN: Markedly protuberant. LOWER EXTREMITIES: The legs has the ulcerations from ruptured blisters. Dr. Mayes had informed me that there is nothing else that could be done for this patient. I told him that I stopped the oral Lasix and gave it intravenously. He did agree with that management at this time. I need to know whether the patient, as well as the daughter, desired resuscitation. MTDKaylie
--- NOTE | 2016-10-09 12:03 | PN ---
DATE OF VISIT: 10/08/16 The patient, when I walk into the room, was sitting in the recliner. Her foot, however, is not elevated. She does have a compression dressing, Elastikon. The patient is alert and not dyspneic and not complaining of any pain. Two daughters are present. The patient still has rales at the bilateral bases. Pulse is not rapid. HEART: Audible and somewhat distant and regular. VITAL SIGNS: At 10 a.m. showed at temperature of 97.9, pulse 80, respiratory rate 22, oxygen saturation 95 at room air. I again advised that the patient's legs should be elevated. The wound culture of both right and left legs showed Serratia Marcescens and Serratia Fonticola. It was also positive for Proteus Mirabilis. Fortunately, all of those three bacteria were sensitive to Ceftriaxone. This patient is given 1 gram of Ceftriaxone IV daily. The Petroleum Plant Operator wanted to decrease it or change it to oral, however I have some suspicion that this patient does not absorb very much medication since her bowels were edematous. The patient's condition seemed to be more or less stable in spite of her significant cardiac pathology and concomitant disease. Her admission chest x-ray showed enlargement of the heart, enlarged main pulmonary artery, probably secondary to pulmonary hypertension. There is no vascular congestion. This patient was noted to have a ventricular ejection fraction at 20 by the atm mechanic, Dr. Mayes. I would talk to Dr. Mayes again tomorrow to see if a repeat echocardiogram can be done and see if her ejection fraction is better than 30 that maybe a trial again of Entresto and see if this would improve the patient's survival. I asked the nurses to weigh the patient every day with the same amount of clothes and pillows in the bed. The patient was listed at 278 pounds and 14.4 ounces on admission. Her weight at the emergency room scale was 289 pounds and 3.2 ounces. PROGNOSIS: Poor. MTDD
--- NOTE | 2016-10-09 12:12 | PN ---
DATE OF VISIT: 10/06/16 The patient is alert and cheerful, smiling. The daughter, Raquel, was there. There was another one, probably another daughter and a gentleman in the room. I asked him if he is related and he said yes. I did tell them that the heart is dilated, but we are trying everything to help along. We are giving the Lasix IV and hopefully it would help the problem. I had discussed the case with Dr. Mayes and he told me that he does not have very much to offer from the standpoint of her heart problem. He also talked to me and did share the discussion he had with the daughters of the patient. A urine was repeated today with the Crowe Catheter insertion and still has too numerous red cells. I had reviewed the CT scan with the radiologist today. I did indicate to them why I did the CT scan of the abdomen and pelvis and the patient indeed has thickening of the bladder wall, probably from cystitis. He does not see any tumors in the kidney. I am not giving any anticoagulants because of the bleeding and I am afraid that it might exacerbate that problem. This patient is receiving Levofloxacin at 500 mg daily. I asked for a urinary culture on the previous specimen, however I do not see it on the screen and again I asked for culture and sensitivity of the urine today. Urine output is 200 cc's. I will order a chemistry tomorrow, plus CBC and a BNP. Hopefully, we will be able to obtain a blood sample. LALITO
--- NOTE | 2016-10-09 13:24 | PN ---
DATE OF VISIT: 10/07/16 The patient, when I walked into the room, was in a sitting position. Her relatives were there, two daughters and two sisters. The patient is alert and oriented and still cheerful. She has 2 liters of nasal oxygen. LUNGS: The lungs have bilateral basal rales. No wheezing. HEART: Audible and regular. The patient has significant edema of the abdominal wall, as well the lower extremities with some eruptions or vesicles. The raw surface will be treated with Bactroban covered by Telfa followed by Coban. An jeremiah bandage will be placed on both lower extremities to produce compression. This patient should go back to bed and elevate both of her legs. The urine in the bag is still bloody, but not blood clots. No anticoagulant medication is given for fear of increasing the bleeding. The patient is still on Levaquin and will be continued until tomorrow. The Pharmacist has recommended that it be converted orally. I am not quite sure because of the patient's general condition that the Levaquin may not be absorbed very well since this patient has an edematous bowel wall secondary to the congestive heart failure that is intractable. LALITO
[2016-10-09] MEDS: LEVAQUIN 500 MG in PREMIX 100 ML D5W 1 BAG IV SCH (20:24)
[2016-10-09] MEDS: SODIUM CHLORIDE 1,000 ML IV SCH (20:25)
[2016-10-10] MEDS: LASIX IVP SCH (05:42)
[2016-10-10] MEDS: ZANTAC PO SCH (05:42)
[2016-10-10 06:35] VITALS: BP 90/0
[2016-10-10] MEDS: BACTROBAN TP SCH (08:04)
[2016-10-10] MEDS: GLUCOPHAGE PO SCH (08:05)
[2016-10-10] MEDS: COREG PO SCH (08:05)
[2016-10-10] MEDS: ALDACTONE PO SCH (08:05)
[2016-10-10] MEDS: ASPIRIN EC PO SCH (08:05)
[2016-10-10] MEDS: COLACE PO SCH (08:05)
[2016-10-10] MEDS: COZAAR PO SCH (08:06)
[2016-10-10 10:26] VITALS: TEMP 97
--- NOTE | 2016-10-10 10:26 | CONS ---
DATE OF SERVICE: 10/09/16 CONSULT FOLLOWUP SUBJECTIVE: The patient is a 66 year old black female hospitalized with refractory congestive heart failure. The patient had generalized anasarca. The patient's condition has steadily improved. This morning she is laying in the chair reclined in no distress. REVIEW OF SYSTEMS: CONSTITUTIONAL: No night sweats. No fatigue, malaise, lethargy. No fever or chills. HEENT: Eyes: No visual changes. No eye pain. No eye discharge. ENT: No runny nose. No epistaxis. No sinus pain. No sore throat. No odynophagia. No ear pain. No congestion. RESPIRATORY: No cough, no congestion. No hemoptysis. CARDIOVASCULAR: No angina symptoms. No CHF symptoms. No atypical chest pain for CAD. No palpitations. Shortness of breath on minimal exertion. GASTROINTESTINAL: No abdominal pain. No nausea or vomiting. No diarrhea or constipation. No hematemesis. No hematochezia. GENITOURINARY: No urgency. No frequency. No dysuria. No hematuria. No obstructive symptoms. No discharge. No pain. No significant abnormal bleeding. MUSCULOSKELETAL: No musculoskeletal pain. No joint swelling. No arthritis. NEUROLOGICAL: No headache. No neck pain. No syncope. No seizures. No dizziness. PSYCHIATRIC: Not anxious. No depression. No suicidal thoughts. No homicidal thoughts. SKIN: No rash. No lesions. No wounds. ENDOCRINE: No unexplained weight loss. No weight gain. HEMATOLOGIC/LYMPHATIC: No anemia. No purpura. No petechiae. No prolonged or excessive bleeding. No palpable lymph nodes. PHYSICAL EXAMINATION: GENERAL: The patient is oriented to time, place and person. VITAL SIGNS: Temperature 97.6, pulse 74, respiratory rate 15, blood pressure systolic 80-90 and pulse ox 100%. HEENT: Head normocephalic, atraumatic. Eyes: Extraocular muscles are intact. Pupils are equal, round and reactive to light and accommodation. Ears: No lesions. Nose appeared normal. Throat: No exudate or erythema. NECK: Supple. No JVD, no carotid bruit. No lymphadenopathy or thyromegaly. LUNGS: Decreased breath sounds bilaterally. Poor air entry at the bases. Percussion note normal. Chest symmetrical. HEART: S1, S2, no S3. No murmurs. No cyanosis or clubbing. No ascites. Pulses: Dorsalis pedis and posterior tibial pulses +1 to +2 both sides. ABDOMEN: Soft. Nontender. Bowel sounds active. No CVA tenderness. No mass felt. EXTREMITIES: Trace edema. Full range of motion of all extremities, equal. NEUROLOGIC: No focal deficit. Cranial nerves II through XII are grossly intact. No headache, no double vision or headache. SKIN: Not dry. Intact. Turgor - normal. LYMPHATIC: No palpable lymph nodes/no lymphedema. MUSCULOSKELETAL: Normal joints with no swelling. Muscle tone is normal. LABS: hgb 13, hct 38, WBC 5,200 normal differential, creatinine 1.2, BUN 29. ASSESSMENT: 1. Congestive heart failure, refractory seems to be stable with no distress 2. Morbid obesity 3. Hypertension 4. Dyslipidemia 5. Diabetes Mellitus RECOMMENDATIONS: 1. The patient's prognosis is poor and family understands it. The case was discussed with the attending. 2. Continue Coreg. Cozaar, Aldactone and Lasix 3. The patient's family thinking about [facility] which maybe ideal place for her. She will get her medications and treatment as needed on emergent bases Thanks for referral, will sign out. LALITO
--- NOTE | 2016-10-11 14:39 | PN ---
DATE OF VISIT: 10/09/16 VITAL SIGNS: At 5:54 p.m. showed a temperature of 97.9, pulse 73, blood pressure 88/0, very difficult to obtain. Respiratory rate 20, oxygen saturation 98 at 3 liters. The patient remained alert and oriented. LUNGS: The lungs has rales in the lower bases. No expiratory wheezing. SKIN: The skin about the level of the iliac spin are edematous down to the legs. The upper trunk area is not edematous. The upper extremities is no longer edematous. This patient is given IV Lasix. She is also receiving IV Rocephin. The patient will be probably transferred to [facility] for further antibiotic administration. This patient had right sided pleural effusion with possible atelectasis or pneumonitis. PROGNOSIS: Very poor because of the dilated cardiomyopathy and heart failure. The patient's CBC remained essentially normal. RDW elevated. Electrolytes normal. CO2 is slightly above normal at 32. BUN 19, creatinine 1.29, E GFR 50. BNP today is 2,042 and was 1,353 two days ago. The highest was 3,089. The urine in the bag still is bloody and I explained to the daughters that I did give her any prophylactic anticoagulation because of the bloody urine. It could trigger more bleeding. Prognosis remains poor and very poor. MTDD
--- NOTE | 2016-10-17 10:04 | DS ---
PATIENT IDENTIFICATION: 66 year old black female who is known to have chronic congestive heart failure secondary to cardiomyopathy did call the ambulance because of increasing shortness of breath. The patient was evaluated in the emergency room and subsequently advised admission. The patient's vital signs at the emergency room showed a temperature of 96.5, pulse 101, blood pressure 147/101, respiratory rate 20, oxygen saturation 93 at room air. She weighed 289 pounds and 3.2 ounces, BMI 45.3. The work-up done in the emergency room showed a CBC with normal WBC, normal hemoglobin and hematocrit, slightly lower MCH. Platelet count is normal. Arterial blood gases showed a pH of 7.512, PCO2 39.5, PO2 67, bicarbonate 31.7, total CO2 33, base excess 9.FIO2 21. Chemistries showed normal electrolytes, slightly elevated CO2 at 32, BUN 25, creatinine 1.30, E GFR 50, blood sugar 136, total bilirubin 1.91, slightly higher, AST 44, slightly higher, normal ALT at 33. Troponin normal at 0.0250. BNP elevated at 3,089. Total protein lower normal. Albumin below normal. Urinalysis 2+ protein, 3+ blood, RBC too numerous to count. Chest x-ray showed cardiomegaly, enlarged main pulmonary artery, no vascular congestion, no consolidation, pleural effusion or pneumothorax. HOSPITAL COURSE: The patient serial CBC showing essentially the same results. Serial CMP was about the same and repeat Troponin remained normal on the following day, as well as the total CK. The BNP has decreased to 1,353 and did go back up to 2,042 a day before discharge. This patient was seen by Dr. Mayes , Cloth Winding Supervisor, on consult. He also had seen her before. He told me that he had discussed the very poor prognosis of the patient. The patient had been to another division chief in the past. LUNGS: The patient has rales in both lung moseley, left more than right. HEART: Normal sinus rhythm, slightly tachycardic. ABDOMEN: Markedly protuberant with thickened skin secondary to the edema in the lower abdomen. LOWER EXTREMITIES: The thighs are also markedly firm because of the chronic edema. The oral Lasix was changed to IV at 40 mg twice a day. The patient was given Levaquin 500 mg IV daily for the wound culture both right and left side. It did grow Serratia Marcescens and Proteus Mirabilis. The other culture in the left leg showed Serratia Fonticola and Proteus Mirabilis. Again, both bacteria are sensitive to Levaquin. Legs wear dressed with Bactroban covered by Telfa and Coban and then Elastikon. The patient's legs were elevated as much as possible. However, the patient goes to the recliner, since she claims that she is not able to sleep with the bed. Her lungs persisted to have rales in both lung moseley, left more than right. Her blood pressure was difficult to obtain on the third hospital day. The radial pulse however was probable and I did inform the nurse that as long as the pulse is palpable that the systolic blood pressure has to be 80 and above. The patient remained alert and conscious and responsive to verbal stimulus and answers correctly. She had movement of all extremities. The patient, in spite of her anasarca, was still able to breath without any difficulties. Discussion as to post hospital care was done by Melanie Kendrick, the Nurse Coordinator, and they were willing to go to the long-term, the patient as well as the family. The patient had been a DNR previously and was also during this admission. The patient was then discharged on 10/10/2016. VITAL SIGNS: Temperature 97 at 10:00 a.m., pulse 79, blood pressure 90/0, respiratory rate 24, oxygen saturation 99 at 3 Liters. The patient was alert and oriented. LUNGS: The lungs have rales in both lung moseley, left more. HEART: Audible and somewhat distant and regular. ABDOMEN: Still markedly thickened lower abdominal wall, as well as the thighs, although less than before. The patient on discharge weighed 285 pounds and 7 ounces. She weighed on admission to the floor at 289 and 2.2 ounces and some difference with the emergency room scale. The patient was weighed again at 1:19 p.m. on 10/04/2016 and was weighed at 278 pounds and 14.4 ounces. On 10/05/2016, she weighed 280 pounds and 1.6 ounces, 281 pounds and 4.8 ounces on 10/06/16, 285 pounds and 9.6 ounces on 10/07/2016. The patient has a Crowe catheter and the drainage is bloody. I explained to the daughters that we are not giving any prophylactic anticoagulants since she is bleeding. Any anticoagulation may exacerbate the bleeding. The daughter seemed to understand the reasoning. PLAN: The patient is then discharged today 10/10/2016 to be admitted to [facility] with specific instructions to give the Lasix way before breakfast on an empty stomach and the Lasix in the afternoon about two hours before supper or three hours after lunch with no kind of solid foods. The rest of her medications are continued. The dressing again is continued, as well as the elevation. She should be on 1800 calorie 2 gram sodium diabetic diet. MEDICATIONS: To be continued Aspirin 81 mg daily Carvedilol 6.2 mg twice a day Colace 200 mg daily Lasix 40 mg twice a day as previously instructed before breakfast and before supper Losartan 25 mg twice a day Metformin 1000 mg daily and this will be divided to 500 mg and the long-term will be contacted. Nitrostat 0.4 mg sublingually and repeat in five minutes times two and if no better to the emergency room. Ranitidine 150 mg twice a day FINAL DIAGNOSES: 1. HEART FAILURE WITH REDUCED EJECTION FRACTION, INTRACTABLE 2. HISTORY OF DILATED CARDIOMYOPATHY 3. DIABETES MELLITUS 4. CHRONIC KIDNEY DISEASE STAGE III 5. ELEVATED BMI 44.7 6. ANASARCA 7. HYPERTENSION BY HISTORY 8. GROSS HEMATURIA PROBABLY SECONDARY TO HEMORRHAGIC CYSTITIS 9. HISTORY OF MYOCARDIAL INFARCTION PROGNOSIS: Poor. MTDD
== END 2016-10-10 14:25 | DRG 293 ==
LOC: ED 10:30 → MEDSURG B 12:52
PROVIDERS: ADMIT General Practice; ATTEND General Practice
DX: I50.9 Heart failure, unspecified (principal); I42.0 Dilated cardiomyopathy; R06.02 Shortness of breath; N30.91 Cystitis, unspecified with hematuria; R60.1 Generalized edema; R60.0 Localized edema; E11.22 Type 2 diabetes mellitus with diabetic chronic kidney disease; N18.3 Chronic kidney disease, stage 3 (moderate); I10 Essential (primary) hypertension; R94.39 Abnormal result of other cardiovascular function study; J44.9 Chronic obstructive pulmonary disease, unspecified; I27.2 Other secondary pulmonary hypertension; S81.802A Unspecified open wound, left lower leg, initial encounter; E66.01 Morbid (severe) obesity due to excess calories; S81.801A Unspecified open wound, right lower leg, initial encounter; B96.4 Proteus (mirabilis) (morganii) as the cause of diseases classified elsewhere; B96.89 Other specified bacterial agents as the cause of diseases classified elsewhere; Z86.79 Personal history of other diseases of the circulatory system; I25.2 Old myocardial infarction; F17.200 Nicotine dependence, unspecified, uncomplicated; Z91.14 Patient's other noncompliance with medication regimen; Z79.899 Other long term (current) drug therapy; Z79.84 Long term (current) use of oral hypoglycemic drugs; Z16.11 Resistance to penicillins
CPT/HCPCS: 36415; 80053; 81001; 82550; 82803; 83874; 83880; 84484; 85025; 87070; 87081; 87186; 93005; 93010; 96374; 97802; 99284

== ENCOUNTER 2016-10-25 10:33 | Outpatient (CLI) ==
[2012-09-15 05:22] VITALS: TEMP 97.7
== END 2016-10-25 10:34 | disposition home or self-care (01) ==
LOC: WOUND 10:33
PROVIDERS: ATTEND Nurse Practitioner Family
DX: I87.332 Chronic venous hypertension (idiopathic) with ulcer and inflammation of left lower extremity (principal); L97.822 Non-pressure chronic ulcer of other part of left lower leg with fat layer exposed; I10 Essential (primary) hypertension; J44.9 Chronic obstructive pulmonary disease, unspecified; I50.9 Heart failure, unspecified; E11.9 Type 2 diabetes mellitus without complications

== ENCOUNTER 2016-11-01 10:24 | Outpatient (CLI) ==
[2012-09-15 05:22] VITALS: TEMP 97.7
== END 2016-11-01 10:25 | disposition home or self-care (01) ==
LOC: WOUND 10:24
PROVIDERS: ATTEND Nurse Practitioner Family
DX: I87.332 Chronic venous hypertension (idiopathic) with ulcer and inflammation of left lower extremity (principal); L97.822 Non-pressure chronic ulcer of other part of left lower leg with fat layer exposed; I87.331 Chronic venous hypertension (idiopathic) with ulcer and inflammation of right lower extremity; L97.812 Non-pressure chronic ulcer of other part of right lower leg with fat layer exposed; I10 Essential (primary) hypertension; J44.9 Chronic obstructive pulmonary disease, unspecified; I50.9 Heart failure, unspecified; E11.9 Type 2 diabetes mellitus without complications
CPT/HCPCS: 11042; 11045; 99212; 99214

== ENCOUNTER 2016-11-22 10:43 | Outpatient (CLI) ==
[2012-09-15 05:22] VITALS: TEMP 97.7
== END 2016-11-22 10:44 | disposition home or self-care (01) ==
LOC: WOUND 10:43
PROVIDERS: ATTEND Nurse Practitioner Family
DX: I87.332 Chronic venous hypertension (idiopathic) with ulcer and inflammation of left lower extremity (principal); L97.822 Non-pressure chronic ulcer of other part of left lower leg with fat layer exposed; I87.331 Chronic venous hypertension (idiopathic) with ulcer and inflammation of right lower extremity; L97.812 Non-pressure chronic ulcer of other part of right lower leg with fat layer exposed; I10 Essential (primary) hypertension; J44.9 Chronic obstructive pulmonary disease, unspecified; I50.9 Heart failure, unspecified; E11.9 Type 2 diabetes mellitus without complications
CPT/HCPCS: 11042; 99212

== ENCOUNTER 2016-12-06 10:28 | Outpatient (CLI) ==
[2012-09-15 05:22] VITALS: TEMP 97.7
== END 2016-12-06 10:29 | disposition home or self-care (01) ==
LOC: WOUND 10:28
PROVIDERS: ATTEND Nurse Practitioner Family
DX: I87.332 Chronic venous hypertension (idiopathic) with ulcer and inflammation of left lower extremity (principal); L97.822 Non-pressure chronic ulcer of other part of left lower leg with fat layer exposed; I87.331 Chronic venous hypertension (idiopathic) with ulcer and inflammation of right lower extremity; L97.812 Non-pressure chronic ulcer of other part of right lower leg with fat layer exposed; I10 Essential (primary) hypertension; J44.9 Chronic obstructive pulmonary disease, unspecified; I50.9 Heart failure, unspecified; E11.9 Type 2 diabetes mellitus without complications

== ENCOUNTER 2016-12-13 10:25 | Outpatient (CLI) ==
[2012-09-15 05:22] VITALS: TEMP 97.7
== END 2016-12-13 10:26 | disposition home or self-care (01) ==
LOC: WOUND 10:25
PROVIDERS: ATTEND Nurse Practitioner Family
DX: I87.332 Chronic venous hypertension (idiopathic) with ulcer and inflammation of left lower extremity (principal); L97.822 Non-pressure chronic ulcer of other part of left lower leg with fat layer exposed; I87.331 Chronic venous hypertension (idiopathic) with ulcer and inflammation of right lower extremity; L97.812 Non-pressure chronic ulcer of other part of right lower leg with fat layer exposed; I10 Essential (primary) hypertension; J44.9 Chronic obstructive pulmonary disease, unspecified; I50.9 Heart failure, unspecified; E11.9 Type 2 diabetes mellitus without complications

== ENCOUNTER 2016-12-20 10:44 | Outpatient (CLI) ==
[2012-09-15 05:22] VITALS: TEMP 97.7
== END 2016-12-20 10:45 | disposition home or self-care (01) ==
LOC: WOUND 10:44
PROVIDERS: ATTEND Nurse Practitioner Family
DX: I87.332 Chronic venous hypertension (idiopathic) with ulcer and inflammation of left lower extremity (principal); L97.822 Non-pressure chronic ulcer of other part of left lower leg with fat layer exposed; I87.331 Chronic venous hypertension (idiopathic) with ulcer and inflammation of right lower extremity; L97.812 Non-pressure chronic ulcer of other part of right lower leg with fat layer exposed; I10 Essential (primary) hypertension; J44.9 Chronic obstructive pulmonary disease, unspecified; I50.9 Heart failure, unspecified; E11.9 Type 2 diabetes mellitus without complications
CPT/HCPCS: 11042; 99213

== ENCOUNTER 2016-12-27 10:22 | Outpatient (CLI) ==
[2012-09-15 05:22] VITALS: TEMP 97.7
== END 2016-12-27 10:23 | disposition home or self-care (01) ==
LOC: WOUND 10:22
PROVIDERS: ATTEND Nurse Practitioner Family
DX: I87.332 Chronic venous hypertension (idiopathic) with ulcer and inflammation of left lower extremity (principal); L97.822 Non-pressure chronic ulcer of other part of left lower leg with fat layer exposed; I87.331 Chronic venous hypertension (idiopathic) with ulcer and inflammation of right lower extremity; L97.812 Non-pressure chronic ulcer of other part of right lower leg with fat layer exposed; I10 Essential (primary) hypertension; J44.9 Chronic obstructive pulmonary disease, unspecified; I50.9 Heart failure, unspecified; E11.9 Type 2 diabetes mellitus without complications
CPT/HCPCS: 11042; 99213; 99214

== ENCOUNTER 2017-01-11 18:00 | Outpatient (CLI) ==
[2012-09-15 05:22] VITALS: TEMP 97.7
== END 2017-01-11 18:01 | disposition home or self-care (01) ==
LOC: AMBL 18:00
DX: R06.02 Shortness of breath (principal); R60.0 Localized edema; R14.0 Abdominal distension (gaseous); R10.9 Unspecified abdominal pain

== ENCOUNTER 2017-01-16 15:43 | Outpatient (CLI) ==
[2012-09-15 05:22] VITALS: TEMP 97.7
== END 2017-01-16 15:44 | disposition short-term general hospital (02) ==
LOC: AMBL 15:43
PROVIDERS: ATTEND Internal Medicine
DX: R41.82 Altered mental status, unspecified (principal); R53.1 Weakness; R06.9 Unspecified abnormalities of breathing

== ENCOUNTER 2017-01-31 08:31 | Outpatient (CLI) ==
[2012-09-15 05:22] VITALS: TEMP 97.7
== END 2017-01-31 08:32 | disposition home or self-care (01) ==
LOC: WOUND 08:31
PROVIDERS: ATTEND Nurse Practitioner Family
DX: I87.332 Chronic venous hypertension (idiopathic) with ulcer and inflammation of left lower extremity (principal); L97.822 Non-pressure chronic ulcer of other part of left lower leg with fat layer exposed; I87.331 Chronic venous hypertension (idiopathic) with ulcer and inflammation of right lower extremity; L97.812 Non-pressure chronic ulcer of other part of right lower leg with fat layer exposed; I10 Essential (primary) hypertension; J44.9 Chronic obstructive pulmonary disease, unspecified; I50.9 Heart failure, unspecified; E11.9 Type 2 diabetes mellitus without complications
CPT/HCPCS: 11042; 99212

== ENCOUNTER 2017-02-07 08:33 | Outpatient (CLI) ==
[2012-09-15 05:22] VITALS: TEMP 97.7
== END 2017-02-07 08:34 | disposition home or self-care (01) ==
LOC: WOUND 08:33
PROVIDERS: ATTEND Nurse Practitioner Family
DX: I87.332 Chronic venous hypertension (idiopathic) with ulcer and inflammation of left lower extremity (principal); L97.822 Non-pressure chronic ulcer of other part of left lower leg with fat layer exposed; I87.331 Chronic venous hypertension (idiopathic) with ulcer and inflammation of right lower extremity; L97.812 Non-pressure chronic ulcer of other part of right lower leg with fat layer exposed; I10 Essential (primary) hypertension; J44.9 Chronic obstructive pulmonary disease, unspecified; I50.9 Heart failure, unspecified; E11.9 Type 2 diabetes mellitus without complications
CPT/HCPCS: 11042; 99213

== ENCOUNTER 2017-02-21 09:43 | Outpatient (CLI) ==
[2012-09-15 05:22] VITALS: TEMP 97.7
== END 2017-02-21 09:44 | disposition home or self-care (01) ==
LOC: WOUND 09:43
PROVIDERS: ATTEND Nurse Practitioner Family
DX: I87.332 Chronic venous hypertension (idiopathic) with ulcer and inflammation of left lower extremity (principal); L97.822 Non-pressure chronic ulcer of other part of left lower leg with fat layer exposed; I87.331 Chronic venous hypertension (idiopathic) with ulcer and inflammation of right lower extremity; L97.812 Non-pressure chronic ulcer of other part of right lower leg with fat layer exposed; I10 Essential (primary) hypertension; J44.9 Chronic obstructive pulmonary disease, unspecified; I50.9 Heart failure, unspecified; E11.9 Type 2 diabetes mellitus without complications

== ENCOUNTER 2017-02-28 10:02 | Outpatient (CLI) ==
[2012-09-15 05:22] VITALS: TEMP 97.7
== END 2017-02-28 10:03 | disposition home or self-care (01) ==
LOC: WOUND 10:02
PROVIDERS: ATTEND Nurse Practitioner Family
DX: I87.332 Chronic venous hypertension (idiopathic) with ulcer and inflammation of left lower extremity (principal); L97.822 Non-pressure chronic ulcer of other part of left lower leg with fat layer exposed; I10 Essential (primary) hypertension; J44.9 Chronic obstructive pulmonary disease, unspecified; I50.9 Heart failure, unspecified; E11.9 Type 2 diabetes mellitus without complications
CPT/HCPCS: 11042

== ENCOUNTER 2017-03-07 09:46 | Outpatient (CLI) ==
[2012-09-15 05:22] VITALS: TEMP 97.7
== END 2017-03-07 09:47 | disposition home or self-care (01) ==
LOC: WOUND 09:46
PROVIDERS: ATTEND Nurse Practitioner Family
DX: I87.332 Chronic venous hypertension (idiopathic) with ulcer and inflammation of left lower extremity (principal); L97.822 Non-pressure chronic ulcer of other part of left lower leg with fat layer exposed; I87.331 Chronic venous hypertension (idiopathic) with ulcer and inflammation of right lower extremity; L97.812 Non-pressure chronic ulcer of other part of right lower leg with fat layer exposed; I10 Essential (primary) hypertension; J44.9 Chronic obstructive pulmonary disease, unspecified; I50.9 Heart failure, unspecified; E11.9 Type 2 diabetes mellitus without complications
CPT/HCPCS: 99212; 99213

== ENCOUNTER 2017-09-12 16:42 | Outpatient (CLI) ==
[2012-09-15 05:22] VITALS: TEMP 97.7
== END 2017-09-12 16:43 | disposition home or self-care (01) ==
LOC: FCC-LAB 16:42
PROVIDERS: ATTEND General Practice
DX: I50.9 Heart failure, unspecified (principal); I10 Essential (primary) hypertension; J44.9 Chronic obstructive pulmonary disease, unspecified; E11.69 Type 2 diabetes mellitus with other specified complication; K21.9 Gastro-esophageal reflux disease without esophagitis; Z79.899 Other long term (current) drug therapy
CPT/HCPCS: 36415; 80053; 80061; 81001; 83036; 85025

== ENCOUNTER 2018-01-29 14:17 | Outpatient (CLI) ==
[2012-09-15 05:22] VITALS: TEMP 97.7
--- NOTE | 2018-01-29 14:46 | DI ---
EXAM: Two views of the chest. History: Short of breath, tachypnea Comparison: Chest radiograph 10/04/2016 Findings: Heart is enlarged. No focal consolidation. No appreciable pleural fluid and no pneumotho rax. No acute osseous abnormalities. Impression: Cardiomegaly without acute disease in the chest
== END 2018-01-29 14:18 | disposition home or self-care (01) ==
LOC: RHC-LAB 14:17
PROVIDERS: ATTEND General Practice
DX: R30.0 Dysuria (principal); R06.82 Tachypnea, not elsewhere classified; I10 Essential (primary) hypertension; J44.9 Chronic obstructive pulmonary disease, unspecified; I50.9 Heart failure, unspecified; I25.2 Old myocardial infarction; E11.69 Type 2 diabetes mellitus with other specified complication; Z79.899 Other long term (current) drug therapy
CPT/HCPCS: 36415; 80053; 80061; 81001; 83036; 83880; 85025; 87086; 93005; 93010

== ENCOUNTER 2018-05-07 15:41 | Outpatient (CLI) ==
[2012-09-15 05:22] VITALS: TEMP 97.7
--- NOTE | 2018-05-07 16:25 | DI ---
EXAM: CHEST FRONTAL AND LATERAL VIEWS HISTORY: Shortness of breath. COMPARISON: 01/29/2018 FINDINGS: Cardiomegaly is stable. Ectasia of the thoracic aorta. No obvious consolidated pneumonia or vascular congestion. No visible pleural fluid or pneumothorax. IMPRESSION: 1. Cardiomegaly with no acute cardiopulmonary process.
== END 2018-05-07 15:42 | disposition home or self-care (01) ==
LOC: RAD 15:41
PROVIDERS: ATTEND General Practice
DX: R06.02 Shortness of breath (principal); I49.9 Cardiac arrhythmia, unspecified; I10 Essential (primary) hypertension; E11.69 Type 2 diabetes mellitus with other specified complication; I50.9 Heart failure, unspecified; Z79.899 Other long term (current) drug therapy
CPT/HCPCS: 93005; 93010

== ENCOUNTER 2018-05-07 15:47 | Outpatient (CLI) ==
[2012-09-15 05:22] VITALS: TEMP 97.7
== END 2018-05-07 15:48 | disposition home or self-care (01) ==
LOC: RHC-LAB 15:47
PROVIDERS: ATTEND General Practice
DX: E11.69 Type 2 diabetes mellitus with other specified complication (principal); I10 Essential (primary) hypertension; I50.9 Heart failure, unspecified; Z79.899 Other long term (current) drug therapy; R06.02 Shortness of breath; I49.9 Cardiac arrhythmia, unspecified
CPT/HCPCS: 36415; 80053; 80162; 81001; 83036; 83880; 85025; 93005; 93010

== ENCOUNTER 2018-05-28 14:25 | Outpatient (CLI) ==
[2012-09-15 05:22] VITALS: TEMP 97.7
--- NOTE | 2018-05-28 15:45 | DI ---
EXAM: PA and lateral views of the chest HISTORY: Shortness of breath COMPARISON: Chest x-ray 05/07/2018 and multiple priors FINDINGS: The cardiomediastinal silhouette is stable. There is no pneumothorax or pleural effusion. There is no consolidation, nodule or mass. The osseous structures are unremarkable. IMPRESSION: Stable enlarged cardiomediastinal silhouette with no acute consolidation
== END 2018-05-28 14:26 | disposition home or self-care (01) ==
LOC: RAD 14:25
PROVIDERS: ATTEND General Practice
DX: R06.02 Shortness of breath (principal); I10 Essential (primary) hypertension; J44.9 Chronic obstructive pulmonary disease, unspecified
CPT/HCPCS: 36415; 80053; 83880; 85025

== ENCOUNTER 2018-05-28 14:33 | Outpatient (CLI) ==
[2012-09-15 05:22] VITALS: TEMP 97.7
== END 2018-05-28 14:34 | disposition home or self-care (01) ==
LOC: RHC-LAB 14:33
PROVIDERS: ATTEND General Practice
DX: R06.02 Shortness of breath (principal); I10 Essential (primary) hypertension; J44.9 Chronic obstructive pulmonary disease, unspecified
CPT/HCPCS: 36415; 80053; 83880; 85025

== ENCOUNTER 2018-06-12 16:07 | Outpatient (CLI) ==
[2012-09-15 05:22] VITALS: TEMP 97.7
== END 2018-06-12 16:08 | disposition home or self-care (01) ==
LOC: LAB 16:07
PROVIDERS: ATTEND General Practice
DX: R06.02 Shortness of breath (principal); I50.9 Heart failure, unspecified
CPT/HCPCS: 36415; 80053; 83880; 85025

== ENCOUNTER 2018-07-02 15:17 | Inpatient (IN) ==
[2018-07-02 15:50] VITALS: BMI 40.6
[2018-07-02] MEDS ORDERED: SENNOSIDES PO PRN (16:43)
[2018-07-02] MEDS ORDERED: NITROSTAT SL PRN (16:43)
[2018-07-02] MEDS ORDERED: DOCUSATE SODIUM PO PRN (16:43)
[2018-07-02] MEDS ORDERED: SENNA PO PRN (16:52)
[2018-07-02] MEDS ORDERED: COLACE PO PRN (16:52)
[2018-07-02] MEDS: GLUCOPHAGE PO SCH (16:53)
[2018-07-02] MEDS: COREG PO SCH (16:53)
[2018-07-02] MEDS ORDERED: LASIX IVP STA (17:03)
[2018-07-02] MEDS: BUMEX PO SCH (20:22)
[2018-07-02] MEDS: IMDUR PO SCH (20:22)
--- NOTE | 2018-07-02 20:52 | DI ---
Exam: Two-view chest x-ray. Date: 07/02/2018. Comparison: 05/28/2018. HISTORY: Shortness of breath. FINDINGS: No acute osseous abnormalities are seen. There is mild bibasilar atelectasis or consolida tion. Cardiac silhouette is enlarged. Pulmonary vasculature is normal. ASVD is present. Impression: Development of mild bibasilar atelectasis. Stable cardiomegaly with ASVD.
[2018-07-02] MEDS ORDERED: NON-FORMULARY MEDICATION (Bumetanide [Bumetanide] 2 MG) PO SCH (21:00)
[2018-07-03] MEDS ORDERED: NON-FORMULARY MEDICATION (Ferrous Sulfate [Ferrous Sulfate] 325 MG) PO SCH (09:00)
[2018-07-03] MEDS: ASPIRIN EC PO SCH (09:11)
[2018-07-03] MEDS: BUMEX PO SCH ×2 (09:11→20:24)
[2018-07-03] MEDS: FERROUS SULFATE PO SCH (09:12)
[2018-07-03] MEDS: ALDACTONE PO SCH (09:12)
[2018-07-03] MEDS: COREG PO SCH ×2 (09:12→16:47)
[2018-07-03] MEDS: GLUCOPHAGE PO SCH ×2 (09:12→16:47)
[2018-07-03] MEDS: IMDUR PO SCH ×2 (09:12→20:25)
[2018-07-03] MEDS: LANOXIN PO SCH (09:14)
[2018-07-04] MEDS: ASPIRIN EC PO SCH (08:21)
[2018-07-04] MEDS: FERROUS SULFATE PO SCH (08:21)
[2018-07-04] MEDS: GLUCOPHAGE PO SCH ×2 (08:21→17:32)
[2018-07-04] MEDS: BUMEX PO SCH ×2 (08:22→20:28)
[2018-07-04] MEDS: ALDACTONE PO SCH (08:22)
[2018-07-04] MEDS: COREG PO SCH ×2 (08:22→17:32)
[2018-07-04] MEDS: IMDUR PO SCH ×2 (08:22→20:28)
[2018-07-04] MEDS: LANOXIN PO SCH (08:24)
--- NOTE | 2018-07-04 09:52 | ECHO2D ---
Date of Exam: 07/03/18 Ordering Physician: DR. VICTOR M CHEUNG Room # : 120 Reason for Echo: CHF, HTN, COPD M-Mode Normal Adult Results LV Dimensions Normal Adult Results AoV Opening excursions >1.6 >1.6 LVEDD-base- 3.5-5.8 6.8 Ao root dimensions 2.0-3.7 3.4 LVESD-base- 3.1-4.6 L. Atrium dimensions 1.9-3.8 5.7 Post. Wall thickness 0.8-1.1 1.1 IV septum (thickness) 0.7-1.2 1.2 Post. Wall excursion 0.72-1.3 0.5 Septal motion 0.4 Systolic motion R. Ventricular cavity 1.5-2.0 NORMAL LVEF 60% 20% Paradoxical septal wall motion MAYBE 2-D : HYPOKINETIC LEFT VENTRICLE, THICKENED MITRAL VALVE LEAFLET WITH MILD MITRAL STENOSIS, NO EFFUSION, NO THROMBUS COLOR FLOW: SEVERE TRICUSPID REGURGITATION, MODERATE MITRAL REGURGITATION, MILD AORTIC REGURGITATION M-MODE: MV: RESTRICTED ANTERIOR MITRAL LEAFLET WITH THICKENED MITRAL VALVE LEAFLET-- FIXED POSTERIOR MITRAL LEAFLET AV: NORMAL TV: NORMAL PV: CHAMBER SIZE: ENLARGED LEFT ATRIAL, LEFT VENTRICLE AND RIGHT VENTRICLE CAVITIES WALL MOTION: HYPOKINETIC LEFT VENTRICLE PERICARDIUM: NORMAL INTERPRETATION: 1. BORDERLINE LEFT VENTRICULAR HYPERTROPHY WITH ENLARGED LEFT ATRIAL CAVITY 2. HYPOKINETIC LEFT VENTRICLE WITH EJECTION FRACTION 20% 3. DILATED LEFT ATRIAL, LEFT VENTRICLE AND RIGHT VENTRICLE CAVITIES 4. PARADOXICAL SEPTAL WALL MOTION 5. MILD MITRAL STENOSIS, VALVE AREA 2.5 CM2 MTDD
[2018-07-04] MEDS: COZAAR PO SCH (09:53)
[2018-07-05] MEDS: ASPIRIN EC PO SCH (08:42)
[2018-07-05] MEDS: BUMEX PO SCH ×2 (08:42→21:06)
[2018-07-05] MEDS: ALDACTONE PO SCH (08:42)
[2018-07-05] MEDS: ZAROXOLYN PO SCH (08:43)
[2018-07-05] MEDS: IMDUR PO SCH ×2 (08:43→21:06)
[2018-07-05] MEDS: FERROUS SULFATE PO SCH (08:43)
[2018-07-05] MEDS: GLUCOPHAGE PO SCH ×2 (08:43→17:00)
[2018-07-05] MEDS: COREG PO SCH ×2 (08:43→17:00)
[2018-07-05] MEDS: COZAAR PO SCH (08:44)
[2018-07-05] MEDS: LANOXIN PO SCH (08:46)
[2018-07-05] MEDS ORDERED: ZAROXOLYN PO SCH (11:00)
--- NOTE | 2018-07-05 13:38 | CONS ---
DATE OF SERVICE: 07/04/18 CONSULT FOLLOWUP SUBJECTIVE: This patient was seen this morning, is feeling better. She is sitting up in the chair. She says she is less short of breath. REVIEW OF SYSTEMS: CONSTITUTIONAL: No night sweats. No fatigue, malaise, lethargy. No fever or chills. HEENT: Eyes: No visual changes. No eye pain. No eye discharge. ENT: No runny nose. No epistaxis. No sinus pain. No sore throat. No odynophagia. No ear pain. No congestion. RESPIRATORY: No cough, no congestion. No hemoptysis. No PND, no orthopnea. CARDIOVASCULAR: No angina symptoms. No CHF symptoms. No atypical chest pain for CAD. No palpitations. No shortness of breath. GASTROINTESTINAL: No abdominal pain. No nausea or vomiting. No diarrhea or constipation. No hematemesis. No hematochezia. GENITOURINARY: No urgency. No frequency. No dysuria. No hematuria. No obstructive symptoms. No discharge. No pain. No significant abnormal bleeding. MUSCULOSKELETAL: No musculoskeletal pain. No joint swelling. No arthritis. NEUROLOGICAL: No headache. No neck pain. No syncope. No seizures. No dizziness. PSYCHIATRIC: Not anxious. No depression. No suicidal thoughts. No homicidal thoughts. SKIN: No rash. No lesions. No wounds. ENDOCRINE: No unexplained weight loss. No weight gain. HEMATOLOGIC/LYMPHATIC: No anemia. No purpura. No petechiae. No prolonged or excessive bleeding. No palpable lymph nodes. PHYSICAL EXAMINATION: VITAL SIGNS: Temperature 97.6, pulse 84, respiratory rate 18, BP 130/86, pulse ox 97% on room air. HEENT: Head normocephalic, atraumatic. Eyes: Extraocular muscles are intact. Pupils are equal, round and reactive to light and accommodation. Ears: No lesions. Nose appeared normal. Throat: No exudate or erythema. NECK: Supple. No JVD, no carotid bruit. No lymphadenopathy or thyromegaly. LUNGS: Decreased breath sounds. Clear to auscultation. Percussion note normal. Chest symmetrical. HEART: S1, S2, no S3. Grade I to II/ systolic murmur at the apex. No cyanosis or clubbing. No ascites. Pulses: Dorsalis pedis and posterior tibial pulses +1 to +2 bilaterally. ABDOMEN: Soft. Nontender. Bowel sounds active. No CVA tenderness. No mass felt. EXTREMITIES: Pitting edema present +2 seems to be less. Full range of motion of all extremities, equal. NEUROLOGIC: No focal deficit. Cranial nerves II through XII are grossly intact. No headache, no double vision or headache. SKIN: Not dry. Intact. Turgor - normal. LYMPHATIC: No palpable lymph nodes/no lymphedema. MUSCULOSKELETAL: Normal joints with no swelling. Muscle tone is normal. Hemoglobin 13, hematocrit 43, WBC 6,000, normal differential. Creatinine 1.1, BUN 27, potassium 3.4. ASSESSMENT: 1. DILATED CARDIOMYOPATHY WITH CHF WITH EVIDENCE OF RIGHT VENTRICULAR OVERLOAD. 2. MORBID OBESITY. RECOMMENDATIONS: 1. Add Losartan as an unloading agent along with Coreg, Bumex, Aldactone. The patient is noncompliant of diet, lifestyle, meds and followup. PROGNOSIS: Poor MTDD
--- NOTE | 2018-07-05 13:48 | CONS ---
DATE OF SERVICE: 07/03/18 CONSULT FOLLOWUP SUBJECTIVE: The patient was seen today for evaluation of shortness of breath. The patient has dilated cardiomyopathy with very poor ejection fraction 20%. The patient is on Aldactone, Lasix, unloading agents, Coreg, oxygen. The patient is noncompliant of her diet. Her BMI is more than 35, is not watching her diet and restricting her salt intake. CHF education carried out, agreed with present management. PHYSICAL EXAMINATION: HEENT: Head normocephalic, atraumatic. Eyes: Extraocular muscles are intact. Pupils are equal, round and reactive to light and accommodation. Ears: No lesions. Nose appeared normal. Throat: No exudate or erythema. NECK: Supple. No JVD, no carotid bruit. No lymphadenopathy or thyromegaly. LUNGS: Clear to auscultation. Percussion note normal. Chest symmetrical. HEART: S1, S2, questionable S3. Grade I/ systolic murmur seems to be of mitral regurgitation. No cyanosis or clubbing. No ascites. Pulses: Dorsalis pedis and posterior tibial pulses +1 to +2 bilaterally. ABDOMEN: Soft. Nontender. Bowel sounds active. No CVA tenderness. No mass felt. EXTREMITIES: Pitting edema +2. Full range of motion of all extremities, equal. NEUROLOGIC: No focal deficit. Cranial nerves II through XII are grossly intact. No headache, no double vision or headache. SKIN: Not dry. Intact. Turgor - normal. LYMPHATIC: No palpable lymph nodes/no lymphedema. MUSCULOSKELETAL: Normal joints with no swelling. Muscle tone is normal. The patient had an echocardiogram done by me today which showed ejection fraction close to 15 to 20% with dilated left ventricular cavity and left atrial cavity. Mitral valve seems to be stenosed, mild with valve area of 2.6 cm sq. ASSESSMENT: 1. Dilated cardiomyopathy with poor ejection fraction with CHF. PROGNOSIS: Extremely poor. RECOMMENDATIONS: 1. The patient is strongly advised to lose weight. 2. Advised to cut down on salt intake and elevate the legs. 3. Strongly advised to take her medications and have followups with attending physician. 4. Agree with present management with IV Lasix with Aldactone, Coreg and unloading agents. and oxygen. LALITO
--- NOTE | 2018-07-05 14:28 | CONS ---
DATE OF CONSULTATION: 07/02/18 REASON FOR CONSULTATION: CHF Diabetes Mellitus HISTORY OF PRESENT ILLNESS: The patient saw Dr. Leon yesterday due to leg swelling, shortness of breath. She uses oxygen at night at home. Per office noted weight was 244 in May and 258 yesterday. REVIEW OF SYSTEMS: CONSTITUTIONAL: No night sweats. No fatigue, malaise, lethargy. No fever or chills. HEENT: Eyes: No visual changes. No eye pain. No eye discharge. ENT: No sinus drainage. No epistaxis. No sinus pain. No sore throat. No odynophagia. No ear pain. No congestion. RESPIRATORY: Cough clear to yellow sputum. "cold symptoms", no congestion. No hemoptysis. No shortness of breath. CARDIOVASCULAR: No angina symptoms. CHF symptoms; unable to lie flat, pitting edema 2+ lower extremity, shortness of air with exertion. . No atypical chest pain for CAD. No palpitations. No orthopnea. GASTROINTESTINAL: No abdominal pain. No nausea or vomiting. No diarrhea or constipation. No hematemesis. No hematochezia. GENITOURINARY: No urgency. Frequency, dribbles. No dysuria. No hematuria. No obstructive symptoms. No discharge. No pain. No significant abnormal bleeding. MUSCULOSKELETAL: No musculoskeletal pain. No joint swelling. NEUROLOGICAL: No headache. No neck pain. No syncope. No seizures. No dizziness. PSYCHIATRIC: Not anxious. No depression. No suicidal thoughts. No homicidal thoughts. SKIN: No rash. No lesions. No wounds. Dry/Warm. Small open area right foot. ENDOCRINE: No unexplained weight loss. No weight gain. HEMATOLOGIC/LYMPHATIC: No anemia. No purpura. No petechiae. No prolonged or excessive bleeding. No palpable lymph nodes. MEDICATIONS: Aldactone Senna Nitroglycerin Metformin Imdur Digoxin Ferrous sulfate Coreg Bumex Aspirin ALLERGIES: Penicillin PAST MEDICAL HISTORY/PAST SURGICAL HISTORY: CHF Diabetes Mellitus type 2 Hypertension Dyslipidemia Noncompliance with medication s GERD Hemorrhoidectomy Hysterectomy, 1984 Elevated BMI Edema lower extremities Endoscopy 2016 PFT 2016: Moderate COPD Echo 2017: LVEF 20% enlarged left atrial and left ventricle cavity SOCIAL/PERSONAL/FAMILY HISTORY: The patient is single. Former smoker, smoke free for one year. Denies any alcohol use. Sister diabetes mellitus, hypertension, Mother CHF and Diabetes Mellitus and Father Diabetes Mellitus. PHYSICAL EXAMINATION: GENERAL: The patient is alert and oriented times three. VITAL SIGNS: Pulse 83, blood pressure 118/78, temperature 97.6, Oxygen saturation 95%. Weight 257. HEENT: Head normocephalic, atraumatic. Eyes: Extraocular muscles are intact. Pupils are equal, round and reactive to light and accommodation. Ears: No lesions. Nose appeared normal. Throat: No exudate or erythema. NECK: Supple. No JVD, no carotid bruit. No lymphadenopathy or thyromegaly. LUNGS: Decreased breath sounds, no creps. Clear to auscultation. Percussion note normal. Chest symmetrical. HEART: S1, S2, no S3. I/ systolic murmur. No cyanosis or clubbing. No ascites. Pulses: Dorsalis pedis and posterior tibial pulses +1 bilaterally. ABDOMEN: Soft. Nontender. Bowel sounds active. No CVA tenderness. No mass felt. EXTREMITIES: +2 pitting edema. Full range of motion of all extremities, equal. NEUROLOGIC: No focal deficit. Cranial nerves II through XII are grossly intact. No headache, no double vision or headache. SKIN: Not dry. Intact. Turgor - normal. LYMPHATIC: No palpable lymph nodes/no lymphedema. MUSCULOSKELETAL: Normal joints with no swelling. Muscle tone is normal. LABS: Chest x-ray: stable cardiomegaly with ASVD. Development of mild bibasilar atelectasis. WBC 5.19, hgb 13.6, hct 44.2, BNP 14,800 to 13,700.00. A1c 7.61, Potassium 3.40-3.36, BUN 27.8-27.9, creatinine 1.32-1.37, GFR 49-47, U/A trace bacteria, Digoxin 0.52, EKG: Sinus rhythm with sinus arrhythmia , ST-T wave abnormality, inferior infarct, age undetermined. ASSESSMENT: 1. Dilated cardiomyopathy with low ejection fraction 2. History of CHF 3. Morbid obesity 4. Chronic leg edema, multi factorial 5. History of hypertension 6. Diabetes mellitus RECOMMENDATIONS: 1. Echocardiogram 2. EKG 3. CHF education carried out 4. BMI 40, morbid obesity, advised to loose weight 5. Decreased salt intake 6. Elevated legs 7. Agreed with Bumex, Aldactone, Coreg 8. Add Losartan Prognosis: Poor Thanks for referral. Will follow. [facility]
[2018-07-06] MEDS: ZAROXOLYN PO SCH (08:36)
[2018-07-06] MEDS: LANOXIN PO SCH (08:36)
[2018-07-06] MEDS: BUMEX PO SCH ×2 (08:36→20:47)
[2018-07-06] MEDS: ALDACTONE PO SCH (08:37)
[2018-07-06] MEDS: FERROUS SULFATE PO SCH (08:37)
[2018-07-06] MEDS: ASPIRIN EC PO SCH (08:37)
[2018-07-06] MEDS: GLUCOPHAGE PO SCH ×2 (08:37→16:39)
[2018-07-06] MEDS: IMDUR PO SCH ×2 (08:37→20:47)
[2018-07-06] MEDS: COZAAR PO SCH (08:37)
[2018-07-06] MEDS: COREG PO SCH ×2 (08:37→16:39)
[2018-07-06] MEDS ORDERED: LASIX IVP ONE (09:00)
[2018-07-06] MEDS: LOVENOX SUBCUT SCH (15:25)
[2018-07-06] MEDS ORDERED: LASIX IVP STA (17:45)
[2018-07-06] MEDS ORDERED: LASIX ONE (17:53)
[2018-07-06] MEDS: ENTRESTO 24 MG-26 MG TABLET PO SCH (20:47)
[2018-07-06] MEDS ORDERED: TYLENOL PO STA (21:17)
[2018-07-07] MEDS: ALDACTONE PO SCH (08:35)
[2018-07-07] MEDS: BUMEX PO SCH (08:35)
[2018-07-07] MEDS: LOVENOX SUBCUT SCH (08:35)
[2018-07-07] MEDS: GLUCOPHAGE PO SCH ×2 (08:36→16:42)
[2018-07-07] MEDS: FERROUS SULFATE PO SCH (08:36)
[2018-07-07] MEDS: ENTRESTO 24 MG-26 MG TABLET PO SCH ×2 (08:36→20:55)
[2018-07-07] MEDS: LANOXIN PO SCH (08:36)
[2018-07-07] MEDS: COREG PO SCH ×2 (08:36→16:42)
[2018-07-07] MEDS: IMDUR PO SCH ×2 (08:36→20:55)
[2018-07-07] MEDS: ASPIRIN EC PO SCH (08:36)
--- NOTE | 2018-07-07 17:10 | DI ---
EXAM: Chest two views HISTORY: Congestive heart failure COMPARISON: 07/02/2018 TECHNIQUE: Two views of the chest were performed FINDINGS: Heart is enlarged, unchanged. Mediastinal contour unchanged. No visible pneumothorax. P robable mild pulmonary vascular congestion. Mild bibasilar atelectasis. No definite pleural effusio n. IMPRESSION: Cardiomegaly with probable mild pulmonary vascular congestion. Mild bibasilar atelectas is.
[2018-07-07] MEDS ORDERED: K-DUR PO STA (18:51)
[2018-07-07] MEDS ORDERED: LASIX IVP STA (18:55)
[2018-07-08] MEDS: DEMADEX PO SCH ×2 (04:37→05:57)
[2018-07-08] MEDS ORDERED: DEMADEX PO SCH (06:30)
--- NOTE | 2018-07-08 07:39 | PN ---
DATE OF SERVICE: 07/05/18 SUBJECTIVE: The patient is still sitting in the recliner with the legs down. Both legs are still swollen. The nurse told me that she just got back bed and indeed the legs are swollen. I told Candice, the nurse, that I wanted weight on standing not on the bed scale. The patient seemed to have gained weight. She was weighed today at 263 pounds, 14.2 ounces and before that on 07/04/18 was 257 pounds and 4 ounces. Again I don't want a bed scale. I want her standing. The patient will given Lasix 40mg intervenously in the morning. LUNGS: Much less rales and in face very few rales at the base HGB and HCT is higher than admission but only slight. Potassium is now normal. GFR 59, blood pressure 101.6 fasting and NT PRO-BNP yesterday was lower at 12, 700 it was 14,800 on admission, 13,700 on the next day. No blood test will be done tomorrow. This patient is encouraged to walk with nurses. The patient albumin as returned to normal at 3.91. I am going to reduce her diet to 1,500 calories a day. Tried to get more vegetables in the diet as well as protein. VITALS: Temperature 98.1, pulse 79, blood pressure 114/54, respiratory rate 20, oxygen saturation 99 at room air. I did advise the patient to take several deep breaths ever time she remembers and blow it out slowly. LALITO
[2018-07-08] MEDS: ALDACTONE PO SCH (08:46)
[2018-07-08] MEDS: ASPIRIN EC PO SCH (08:46)
[2018-07-08] MEDS: GLUCOPHAGE PO SCH (08:46)
[2018-07-08] MEDS: COREG PO SCH (08:46)
[2018-07-08] MEDS: LOVENOX SUBCUT SCH (08:47)
[2018-07-08] MEDS: IMDUR PO SCH (08:47)
[2018-07-08] MEDS: FERROUS SULFATE PO SCH (08:47)
[2018-07-08] MEDS: ENTRESTO 24 MG-26 MG TABLET PO SCH (08:47)
[2018-07-08 14:13] VITALS: BP 132/73; TEMP 98.8
--- NOTE | 2018-07-15 11:54 | HP ---
DATE OF SERVICE: 07/02/18 CHIEF COMPLAINT: Shortness of breath, more leg swelling and weight gain a few weeks of 14 pounds. HISTORY OF PRESENT ILLNESS: This patient has been gaining weight and was seen at the office. She also had leg swelling and was seen on 06/12/18 and did weigh 244 pounds. The patient during that time, not complaining of any shortness of breath at rest at minimal exertion and the lungs were also clear to auscultation. She was seen today 07/02 at the office complaining of shortness of breath and increasing swelling of the legs and weight gain of 14 days over 20 days. The patient also had rales in both lungs moseley but no wheezing. Breath sounds were diminished. The legs are markedly edematous. The patient was advised admission with a tentative diagnosis of congestive heart failure, bilateral increasing edema lower extremity secondary to #1 plus dependency, Noncompliance. This patient's medications were reviewed the patient has more medications then it should have been and in fact there is like a month more medication that is left so this patient is not taking the medication as prescribed. The daughter was with the patient in the same room when I counted the tablets. PAST PERSONAL HISTORY: The patient was admitted 08/12/16 because of bilateral leg edema, severe with vesicular eruptions. She also was admitted 10/04/16 by the emergency room because of congestive heart failure with chief complain shortness of breath. The patient had an echocardiogram and was seen by cardiology for consultation. Admitted previously 07/14/15 and 08/25/15 for congestive heart failure Hypertension Diabetes mellitus type 2 Elevated BMI COPD Osteoarthritis Other admissions for congestive heart failure Previous myocardial infarction GERD by history Chronic tobacco use had stopped FAMILY HISTORY: Brother is diabetic with kidney disease Sister hypertensive with diabetes mellitus and from the complications of the disease Father was diabetic Mother congestive heart failure and Diabetic SOCIAL HISTORY: The patient is single and resides with her daughter. She had been in the assisted and had improved and was discharged after significant improvement with significant weight loss. MEDICATIONS: Docusate sodium 100mg three times a day Nitroglycerin 0.4mg PRN Digoxin 125mcg tablet daily Aspirin 81mg daily Carvedilol 3.125mg twice a day Metformin 500mg twice a day Isosorbide Mononitrates 30mg twice a day Aldactone 25mg daily Ferrous sulfate 325mg tablet daily. ALLERGIES: Penicillin REVIEW OF SYSTEMS: CONSTITUTIONAL: The patient has no fever or chills. Fatigue. BROACHER: Denies any headaches. Gait is slow because of the shortness of breath. No syncopal episode or no seizure events. VISUAL: Denies any loss of vision or double vision. AUDITORY: The patient's hearing is decreased, no tinnitus, no pain or drainage. RESPIRATORY: The patient has shortness of breath with occasional cough. No hemoptysis CARDIOVASCULAR: Denies any chest pain or chest tightness but has shortness of breath on exertion. GASTROINTESTINAL: Denies any nausea. anorexia or dysphagia. No abdominal pain and no diarrhea. Denies any blood in the stool. GENITOURINARY: Denies any pain on urination but does have stress incontinence and denies any blood in the urine. MUSCULOSKELETAL: The patient has generalized weakness. Some osteoarthritis of the knee with pain. ENDOCRINE: The patient denies any polyuria or polydipsia. She has diagnosis of type 2 diabetes, uncontrolled. INTEGUMENT: Skin in both legs are shiny but no vesicular eruptions. No ecchymosis. No rash and no pruritus. HEMATOLOGIC: Anemia but no history of prolonged bleeding or spontaneous bleeding. No blood in the urine PSYCHIATRIC: Affect is normal. PHYSICAL EXAMINATION: GENERAL: We have a 68 year old black female admitted to the hospital because of increasing shortness of breath and edema on both lower extremities and a weight gain of 14 pounds in the last 20 days. HEAD: Unremarkable. scalp has no active dermatis. FACE: Symmetrical and equal with no facial weakness. The patient denies any tenderness to palpation in the frontal and maxillary sinus areas. EYES: Pupils equal/reactive to light. Conjunctivae slightly pale. Sclerae not icteric. About 3mm in size. MOUTH: Unremarkable. THROAT: No inflammation, tumors or exudate. NECK: No masses. No bruit. No tenderness. No rigidity. CHEST: Symmetrical and equal. Expansion is acceptable. LUNGS: Breath sounds are diminished in both sides with rales on both lung moseley , more on the left. HEART: Audible and regular with good tones. No murmurs. ABDOMEN: Markedly protuberant with no significant tenderness. Bowel sounds are active. No masses palpable. EXTERNAL GENITALIA: Not examined RECTAL: Not performed LOWER EXTREMITIES: Markedly edematous legs as well as above the knee on both thighs. Skin is shiny in both legs but no vesicular eruptions. Pedal pulses are not palpable. UPPER EXTREMITIES: Symmetrical and equal. ASSESSMENT: 1. Congestive heart failure 2. Increase dyspnea secondary to #1 3. Increasing bilateral leg edema probably combination of factors congestive heart failure plus positional 4. Increased BMI 39.3 kilograms per square meter area for several admission in the past because of congestive heart failure. 5. Rapid weight gain, 14 pounds in 20 days. 6. Diabetes mellitus 7. History of hypertension on medication 8. Noncompliant TIME SPENT: GREATER THAN 65 MINUTES MTDD
--- NOTE | 2018-07-30 11:57 | DS ---
DATE OF SERVICE: 07/08/18 PATIENT IDENTIFICATION: 68-year-old black female admitted to the hospital because of increasing shortness of breath and rapid weight gain, 14 lbs in 20 days with increasing leg edema. The patient also has experienced more weakness. The patient on admission weighed 259 lbs. The patient had rales in both lung moseley, more on the left side at time of admission. Markedly edematous on both lower extremities and shortness of breath with minimal exertion just getting out of bed. The patient's initial CBC was unremarkable. Normal hemoglobin/hematocrit. MCV 81.1, MCH 25.0, elevated RDW 16.8. Electrolytes slightly lower potassium and chloride but not clinically significant. The NT-Pro-BNP was 14,800. Urinalysis unremarkable. Normal RBC, WBC. No blood. Trace bacteria. The patient was given Lasix intravenously and lost 1.5 lbs the following day. The patient was placed on 1800 calorie diet with snacks. The patient's weight had stayed about the same. He was seen in consultation by Dr. Mayes, Motor Vehicle Escort Driver and ordered Metolazone 2.5 mg added to the Bumex 2 mg twice a day. Diet was reduced to 1500 calories without any snacks. The patient's weight has decreased on 07/07/18 to 253 lbs. Lungs were clear to auscultation on both sides on 07/07. The NT-Pro-BNP on 07/06/18 is down to 9,640 from 14,800. Leg swelling has somewhat decreased. The patient's blood sugar fasting were in good control ranging from 98.9 to 148.6. The patient had no adverse reaction to the Entresto. The patient on 07/08/18, th day of discharge was alert, ambulatory plus exertional dyspnea. She did weigh 251 lbs today, Lungs were clear. Heart was audible and regular. Abdomen protuberant and soft. Lower extremities edema is less. The patient is discharged and instruction was given to the patient as well as the daughter in the presence of the nurse, Aide Vazquez. It is repeatedly stressed to them that she needs to take the medication as prescribed. It is very important that she does that and also that she has to eat less amount of bread and anything that has sugar. She should eat more vegetables and meat. Her renal function is still acceptable. A diet of salad at noon with diced meat, chicken, turkey, beef or pork would be better and then that would also be for supper. It is stressed again that she should eat without any added salt in the cooking. Lungs are clear to auscultation although diminished breath sounds. Heart is audible with good tones, very soft systolic murmur. Abdomen is protuberant, soft but no masses. Lower extremities - edema is less. Oxygen saturation on room air is 97%. I needed to know since this patient does not have any oxygen at home. It was also listed as 100 with 1- liter on admission. The patient at two o'clock. 07/08/18 had a temperature 98.8, pulse 83, blood pressure 132/73, respiratory rate 18, oxygen saturation 100 on 1 -liter of nasal oxygen. I doubt if that was with oxygen. The patient is discharged today with the following new prescription, Entresto 24mg - 26 mg one tablet p.o. twice a day. To resume the previous medications. She is to eat no added salt in her food, should not eat any bread or sugar or sugary food but may eat a baked potato if desired although not advisable because of the diabetes with skin. Bumex is reduced to once a day with the Sacubitril (Entresto). Take deep breaths and blow it out slowly. The patient is to see me in one week or before if there is any concerns. Again emphasize that she should take the medication as prescribed. She should not miss any doses at all. FINAL DIAGNOSES: 1. CONGESTIVE HEART FAILURE, IMPROVED 2. DILATED CARDIOMYOPATHY WITH LEFT VENTRICULAR EJECTION FRACTION 20% 3. MYOCARDIAL INFARCTION 4. HISTORY OF HYPERTENSION 5. MULTIPLE ADMISSIONS BECAUSE OF CONGESTIVE HEART FAILURE 6. HISTORY OF DIABETES MELLITUS 7. HISTORY OF OBESITY AND PERSISTENT PROGNOSIS: Poor TIME SPENT: GREATER THAN 30 MINUTES MTDD
== END 2018-07-08 14:55 | disposition home or self-care (01) | DRG 282 ==
LOC: MEDSURG B 15:17
PROVIDERS: ADMIT General Practice; ATTEND General Practice
DX: I50.9 Heart failure, unspecified (principal); I21.9 Acute myocardial infarction, unspecified; I10 Essential (primary) hypertension; I42.0 Dilated cardiomyopathy; E11.9 Type 2 diabetes mellitus without complications; R60.0 Localized edema; R06.00 Dyspnea, unspecified; Z91.19 Patient's noncompliance with other medical treatment and regimen; Z68.39 Body mass index [BMI] 39.0-39.9, adult
CPT/HCPCS: 36415; 80053; 80162; 81001; 82550; 82962; 83036; 83880; 84484; 85025; 87070; 87186; 93005; 93010; 97802

== ENCOUNTER 2018-07-16 13:04 | Outpatient (CLI) ==
[2012-09-15 05:22] VITALS: TEMP 97.7
== END 2018-07-16 13:05 | disposition home or self-care (01) ==
LOC: RHC-LAB 13:04
PROVIDERS: ATTEND General Practice
DX: I10 Essential (primary) hypertension (principal); I50.9 Heart failure, unspecified
CPT/HCPCS: 36415; 80069

== ENCOUNTER 2018-07-19 15:00 | Outpatient (RCR) ==
[2012-09-15 05:22] VITALS: TEMP 97.7
--- NOTE | 2018-07-15 16:23 | RS.OPPTEV2 ---
Date of Note: 07/15/18 Visit #: 1 Number of visits approved by Insurance: pending Date of Evaluation: 07/15/18 Payer Source: Medicaid Surgery Performed?: No Treatment Diagnosis: BLE weakness, impairment of balance History of Condition/Mechanism of Injury:: pt with increased difficulty walking recently with BLE edema. Prior Level of Function.....Patient was independent with: ADL's, Self Care, Ambulation/Mobility Level of Function: pt amb in apt without AD, states she is unable to walk very far due to SOA. 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 Patient's Goals: be able to return to denominational and sing in the choir Functional Outcome Measure Tinetti: 17 - G Codes & Severity Modifier G Codes & Modifier: n/a Source of G Code score: n/a Observation - Observation Inspection: pt with 2+ pitting edema BLE. Posture: Forward Head, Rounded Shoulders, Increased Thoracic Kyphosis Handedness: Right Gait - Gait Pattern General Gait Pattern Observation: Crouched Gait, Decrease Stride Lngth (R), Decrease Stride Lngth (L) Gait Comments: pt amb 50ft with rwx with CGA, pt amb with flexed posture, decreased step length and increased lat sway. pt reports SOA after 50ft and states "I never walk than far." General Range of Motion: BUE WFL's. BLE WFL's Muscle Strength: BUE shld flex 4-/5, elbow flex/ext 4/5. RLE hip 4-/5, knee flex/ext 4/5, ankle DF/PF 4/5. LLE hip flex 3+/5, knee flex/ext 4/5, ankle DF/ PF 4-/5 Palpation Palpation Findings: Tenderness Comments:: BLE Sensation - Sensation Right Upper Extremity: Intact/Normal Left Upper Extremity: Intact/Normal Right Lower Extremity: Intact/Normal Left Lower Extremity: Intact/Normal Balance - Sitting Balance Static Sitting Balance: Good Dynamic Sitting Balance: Good - Standing Balance Static Standing Balance: Fair Dynamic Standing Balance: Poor - Comments Balance Assessment Comments: tinetti balance assessment which is consistent with high risk of falls. Gait speed 0.34 meters/sec consistent with household amb. Interventions - Exercise/Activities/Manual Therapy Exercises/Activities: pt performed BLE AP, LAQ, seated hip flex, isometric hip add x 10 reps Manual Therapy: n/a HOME EXERCISE PROGRAM: pt given written HEP including: AP, LAQ, seated hip flex , isometric hip add - Charges Timed Code Treatment Minutes: 48 Total Treatment Time: 57 Procedures billed for this date of service:: eval med, ex EVALUATION COMPLEXITY LEVEL EVALUATION COMPLEXITY LEVEL: HISTORY: Medium (DM, HTN, CHF, SOA), EXAM OF BODY SYSTEMS: Medium (SOA, balance, transfers, gait), CLINICAL PRESENTATION: Medium, CLINICAL DECISION MAKING: Medium Assessment Assessment: pt presents with decreased strength, balance, gait ability and transfer ability. Feel pt would benefit from skilled PT for therex for LE strengthening, balance as well as gait training to improve functional mobility. Patient Education: Home Exercise Program, Education of Plan of Care Rehab Potential: Good Short Term Goals Goal #1: pt independent with initial HEP Goal to be met by: 07/26/18 Goal #2: Improve LE strength 4/5 Goal to be met by: 07/26/18 Goal #3: Improve dyn stand balance as noted by tinetti score improved to Goal to be met by: 07/26/18 Goal #4: pt amb in dept with rwx with SBA with no SOA Goal to be met by: 07/26/18 Au Pair Goals Goal #1: Improve gait speed to 0.5 meters/sec consistent with limited comm ambulator Goal to be met by: 08/09/18 Goal #2: pt able to perform ADL's and amb without assist Goal to be met by: 08/09/18 Goal #3: Improve dyn stand balance tinetti Goal to be met by: 08/09/18 Goal #4: pt amb from parking lot to dept w AD w no LOB and SBA Goal to be met by: 08/09/18 Plan - Treatment to be Provided Procedures: Therapeutic Exercises, Therapeutic Activity, Gait Training, Patient Education Modalities: No Modalities - Treatment Plan Frequency: 2 X week Duration: 4 weeks Dates of Au Pair Goals: 08/09/18 Expiration date of current Insurance Approval:: pending - Treatment Code (1) Muscle weakness Code(s): M62.81 - MUSCLE WEAKNESS (GENERALIZED) (2) Impairment of balance Code(s): R26.89 - OTHER ABNORMALITIES OF GAIT AND MOBILITY (3) Gait difficulty Code(s): R26.9 - UNSPECIFIED ABNORMALITIES OF GAIT AND MOBILITY
--- NOTE | 2018-07-19 16:29 | RS.OPPTDN ---
Subjective Date of Note: 07/19/18 Visit #: 2 Number of visits approved by Insurance: na Date of Evaluation: 07/15/18 Payer Source: Medicaid Treatment Diagnosis: BLE weakness, impairment of balance Current Subjective/complaints:: Patient reports SOB with exercise when in supine on elevated table. Patient asks to stop early due to fatigue following standing exercise. *Precautions: n/a Interventions - Exercise/Activities/Manual Therapy Exercises/Activities: AP, SAQ, Isometric ankle inversion with ball, isometric hip add with ball, red theraband for resisted ankle df, assisted hip flexion in hook-lying. In sitting, alt hip flex, isometric hip add, ankle pumps, red theraband resisted ham curl. In standing, side-stepping, marching and began alt hip abd but stopped due to fatigue. Total minutes of Exercise: 32mins Manual Therapy: n/a HOME EXERCISE PROGRAM: pt given written HEP including: AP, LAQ, seated hip flex , isometric hip add - Charges Timed Code Treatment Minutes: 32mins Total Treatment Time: 37mins Procedures billed for this date of service:: EX2 Assessment: Patient fatigues quickley and is very SOB unless in sitting position. She will benefit from HEP. Patient Education: Home Exercise Program, Home Safety, Activity Modification Short Term Goals Goal #1: pt independent with initial HEP Goal to be met by: 07/26/18 Progress towards Goal:: Progressing Goal #2: Improve LE strength /5 Goal to be met by: 07/26/18 Goal #3: Improve dyn stand balance as noted by tinetti score improved to Goal to be met by: 07/26/18 Goal #4: pt amb in dept with rwx with SBA with no SOA Goal to be met by: 07/26/18 Half-Way Goals Goal #1: Improve gait speed to 0.5 meters/sec consistent with limited comm ambulator Goal to be met by: 08/09/18 Goal #2: pt able to perform ADL's and amb without assist Goal to be met by: 08/09/18 Goal #3: Improve dyn stand balance tinetti Goal to be met by: 08/09/18 Goal #4: pt amb from parking lot to dept w AD w no LOB and SBA Goal to be met by: 08/09/18 Plan Dates of Enterprise Systems Administrator Goals: 08/09/18 Expiration date of current Insurance Approval:: 08/09/18 PLAN: Progress strengthening and balance exercise to increase safety and functional activity level.
--- NOTE | 2018-07-22 15:12 | RS.CXNS ---
Date of scheduled appointment: 07/22/18 Type: Cancel (Patient called to cancel appointment. No reason given.)
== END 2018-07-23 23:59 ==
PROVIDERS: ATTEND General Practice
DX: R29.898 Other symptoms and signs involving the musculoskeletal system (principal); R26.89 Other abnormalities of gait and mobility

== ENCOUNTER 2018-07-24 15:19 | Outpatient (RCR) ==
[2012-09-15 05:22] VITALS: TEMP 97.7
--- NOTE | 2018-07-24 16:35 | RS.OPPTDN ---
Subjective Date of Note: 07/24/18 Visit #: 3 Number of visits approved by Insurance: pending Date of Evaluation: 07/15/18 Payer Source: Medicaid Treatment Diagnosis: BLE weakness, impairment of balance Current Subjective/complaints:: Patient c/o SOB when beginning exercise while in an elevated supine position. She has been feeling bad. She expresses concern she may have a heart attack at some point. *Precautions: n/a Interventions - Exercise/Activities/Manual Therapy Exercises/Activities: AP, SAQ, and isometric hip add with ball. Attempted alt hip flexion. Assisted with short distance ambulation in department with INTERNET MEDIA PLANNER x2 with O2 monitored. Total minutes of Exercise: 25mins Manual Therapy: n/a HOME EXERCISE PROGRAM: pt given written HEP including: AP, LAQ, seated hip flex , isometric hip add - Objective Findings Observations,measurements,etc.: O2 sat monitored and dropped to 92% with light LE exercises with frequent breaks. Patients O2 sat also when down to 93% with amb approx 20' in department with INTERNET MEDIA PLANNER x2. Sat returns to an average of 97 to 98 % with rest breaks. - Charges Timed Code Treatment Minutes: 25mins Total Treatment Time: 25mins Procedures billed for this date of service:: EX, TA Assessment: Patient session stopped early due to patient not feeling well. Comments: Patient and daughter advised to contact physician concerning patients SOB and slight drop in O2 sat with light activity. Short Term Goals Goal #1: pt independent with initial HEP Goal to be met by: 07/26/18 Progress towards Goal:: Progressing Goal #2: Improve LE strength 4/5 Goal to be met by: 07/26/18 Goal #3: Improve dyn stand balance as noted by tinetti score improved to Goal to be met by: 07/26/18 Goal #4: pt amb in dept with rwx with SBA with no SOA Goal to be met by: 07/26/18 Photonics Engineering Technologist Goals Goal #1: Improve gait speed to 0.5 meters/sec consistent with limited comm ambulator Goal to be met by: 08/09/18 Goal #2: pt able to perform ADL's and amb without assist Goal to be met by: 08/09/18 Goal #3: Improve dyn stand balance tinetti Goal to be met by: 08/09/18 Goal #4: pt amb from parking lot to dept w AD w no LOB and SBA Goal to be met by: 08/09/18 Plan Dates of Photonics Engineering Technologist Goals: 08/09/18 Expiration date of current Insurance Approval:: 08/09/18 PLAN: Hold treatment with patient and daughter to contact physician about patients symptoms.
--- NOTE | 2018-08-21 15:08 | RS.QUICKDC ---
Discharge from PT Date of Discharge: 08/21/18 Number of Visits: 3 Reason for Discharge: Patient attended 3 sessions and reported not feeling well. On last visit she reported being dizzy and unable to continue with exercise or balance work. She and daughter were advised to call or stop by her physicians office [place] No further contact from patient to reschedule visits. Discharge due to lack of attendance.
== END 2018-08-23 23:59 ==
PROVIDERS: ATTEND General Practice
DX: R29.898 Other symptoms and signs involving the musculoskeletal system (principal); R26.89 Other abnormalities of gait and mobility